=== PATIENT | male | born 1960 | race Caucasian/White ===

== ENCOUNTER → 2017-03-05 | Outpatient (CLI) | payer BC ==
--- NOTE | 2017-03-05 09:11 | CT ---
EXAMINATION TYPE: CT sinus wo con DATE OF EXAM: 03/05/2017 COMPARISON: NONE HISTORY: Chronic sinusitis CT DLP: 569.10 mGycm. Automated Exposure Control for Dose Reduction was Utilized. TECHNIQUE: CT scan of the sinuses is performed without contrast, axial images are obtained, coronal r eformatted images are also reviewed. FINDINGS: Visualized intracranial structures are normal. Soft tissues including the orbits appear normal. There is a 1.5 cm retention cyst or polyp involving the anterior aspect of the left maxillary sinus. There is mild, chronic mucoperiosteal thickening involving the anterior ethmoid air cells. The remain betina the paranasal sinuses are clear. The mastoid air cells are clear. Both infundibula are patent. IMPRESSION: MINIMAL, CHRONIC NUCHAL PERIOSTEAL THICKENING INVOLVING THE LEFT MAXILLARY SINUS AND THE ANTERIOR ETH MOID SINUSES BILATERALLY
== END | disposition home or self-care (01) ==
LOC: RADCTMAIN 08:41
PROVIDERS: ATTEND Otolaryngology
DX: J32.0 Chronic maxillary sinusitis (principal); J32.2 Chronic ethmoidal sinusitis
CPT/HCPCS: 70486

== ENCOUNTER 2017-04-10 11:26 | Day surgery (SDC) | payer BC ==
[2017-04-04 10:40] VITALS: BMI 26.0
[~2017-04-10 11:26] MED LIST: DEXAMETHASONE SOD PHOSPHATE 10 MG/ML 1 ML VIAL IV ONE; DEXAMETHASONE SOD PHOSPHATE 4 MG/ML 1 ML VIAL IV ONE; FAMOTIDINE 20 MG/2 ML VIAL IV ONE; LACTATED RINGERS 1,000 ML IV SCH; LIDOCAINE 1% 20 ML VIAL (10MG/ML) FOR IV START INTRADERMA PRN; MIDAZOLAM 2 MG/2 ML VIAL IV PRN; ONDANSETRON 4 MG/2 ML VIAL IVP ONE; SCOPOLAMINE 1.5MG/72HR PATCH TRANSDERM ONE; ceFAZolin 1,000 MG in DEXTROSE/WATER 1 50ML.BAG IV ONE
[2017-04-10] MEDS: OXYMETAZOLINE 0.05% NASL SPRAY 15 ML NASAL ONE ×5 (12:30→12:53)
[2017-04-10] MEDS ORDERED: LIDOCAINE 1%-EPI 1:100,000 20 ML VIAL SUBMUCOSAL ONE ×3 (13:09→13:26)
[2017-04-10] MEDS ORDERED: HYDROmorphone (PF) 1 MG/ML ONE (13:11)
[2017-04-10] MEDS ORDERED: PROPOFOL 10 MG/ML 20 ML VIAL IV ONE (13:11)
[2017-04-10] MEDS ORDERED: MIDAZOLAM 2 MG/2 ML VIAL ONE (13:11)
[2017-04-10] MEDS ORDERED: LIDOCAINE 1% INJ 10MG/ML (20 ML MDV) ONE (13:11)
[2017-04-10] MEDS ORDERED: SUCCINYLCHOLINE CHLORIDE 100 MG/5 ML SYR IV ONE (13:11)
[2017-04-10] MEDS ORDERED: fentaNYL (PF) 50 MCG/ML 2 ML AMP ONE (13:11)
[2017-04-10] MEDS ORDERED: BACITRACIN 500 UNIT/GM OINT 28.4 GM TUBE TOPICAL ONE (14:05)
[2017-04-10] MEDS ORDERED: LACTATED RINGERS 1,000 ML IV ONE (14:18)
--- NOTE | 2017-04-10 14:21 | P.OP ---
Date of Procedure: 04/10/17 Preoperative Diagnosis: Deviated nasal septum Inferior turbinate hypertrophy Chronic sinusitis Postoperative Diagnosis: Same Procedure(s) Performed: Septoplasty Outfracture and submucous resection inferior turbinates Bilateral endoscopic sinus surgery including bilateral maxillary antrostomy with removal of tissue from the left maxillary sinus, bilateral anterior ethmoidectomy, bilateral frontal sinusotomy including balloon sinus plasty with exploration, left antonette bullectomy Implants: Anesthesia: ROBB Surgeon: Jm Aaron Estimated Blood Loss (ml): 15 Pathology: other (Nasal septal bone and cartilage and sinus contents) Condition: stable Disposition: PACU Indications for Procedure: Is a 57-year-old white female with a long-term history of chronic nasal airway obstruction bilaterally right greater than left as well as chronic and recurrent sinusitis. Computed tomography scan showed evidence of chronic sinusitis. Operative Findings: Nasal septum deviated to the right, inferior turbinate hypertrophy, chronic sinusitis bilateral maxillary anterior ethmoid and mildly the frontal sinuses, left antonette bullosa cell Description of Procedure: Patient was brought in the operative suite and positioned supine position. Patient underwent induction of general anesthesia with oral endotracheal intubation without difficulty. The patient was prepped and draped in usual aseptic fashion. Orbits were in the operating field for monitoring testing case and computed tomography scan was on the computer screen through the case. 1% lidocaine with 1-100,000 epinephrine was infused submucosally both sides nasal septum as well as lateral nasal wall bilaterally and anterior tips of the middle turbinates bilaterally. The inferior turbinates were infractured with the Coamo elevator partial submucous resection inferior turbinates performed with Coblation device ablating a portion of the inferior turbinate soft tissue and then outfractured with the Coamo elevator. A left hemitransfixion incision was made the perichondrial mucoperiosteal flap on the left elevated. The bony cartilaginous junction was disarticulated and mucoperiosteal flap on the right was elevated. Bony cartilaginous junction was disarticulated and the bony nasal septal deformities were removed with Rowena forceps. An inferior cartilaginous strip was removed leaving a full 1.5 cm caudal strut. Checking intranasally this corrected the nasoseptal deformities and the hemitransfixion incision was closed running 4-0 chromic suture. Full 0 endoscopic examination is performed bilaterally. Beginning on the left the middle turbinate was medialized. The lateral one half of the middle turbinate was removed loss performed in the antonette bullectomy with the microdebrider. Left maxillary ostium was located with a ballpoint probe. Infundibulotomy was performed followed by uncinectomy. The maxillary ostium was enlarged at the expense the anterior posterior fontanelle taking care anteriorly not to the lacrimal bone. The maxillary sinus was inspected with the 30 endoscope and there were small polyps removed with giraffe forceps. Anterior ethmoidectomy was then performed with the microdebrider. The entellus light guided balloon system was then used to perform a frontal sinusotomy and the sinus was explored with 30 endoscope. Attention was then turned to the right where the procedures were followed as they were on the left including medialization middle turbinate infundibulotomy uncinectomy maxillary antrostomy with exploration anterior ethmoidectomy and balloon sinus plasty of the right frontal sinus with exploration. Once this was completed hemopore nasal dressing was placed as meatus under direct visualization. Bilateral Rose airway splints coated bacitracin ointment were placed in nasal cavities and sutured trans-septally with a 4-0 nylon suture. Patient was suctioned in oral gastric fashion. The patient was allowed to emerge from general anesthesia and Dr. hinojosa was extubated operative suite transferred postoperative recovery area in satisfactory condition.
[2017-04-10 14:37] VITALS: TEMP 97.8
[2017-04-10] MEDS: HYDROmorphone 1 MG/ML 1 ML SYRINGE IVP PRN ×4 (14:40→14:57)
[2017-04-10 14:46] VITALS: RESP 16
[2017-04-10] MEDS ORDERED: ENALAPRILAT 1.25 MG/ML 1 ML VIAL IVP ONE (15:05)
[2017-04-10] MEDS ORDERED: LABETALOL 5 MG/ML VIAL MDV IVP ONE (15:40)
[2017-04-10] MEDS ORDERED: hydrALAZINE HCL 20 MG/ML 1 ML VIAL IVP ONE (15:55)
[2017-04-10 16:55] VITALS: BP 143/91; PULSE 78
== END 2017-04-10 17:50 | disposition home or self-care (01) ==
LOC: OR 11:26
PROVIDERS: ATTEND Otolaryngology
DX: J34.2 Deviated nasal septum (principal); J34.3 Hypertrophy of nasal turbinates; Z87.442 Personal history of urinary calculi; J32.0 Chronic maxillary sinusitis; J32.2 Chronic ethmoidal sinusitis; J32.1 Chronic frontal sinusitis; Z79.891 Long term (current) use of opiate analgesic; Z79.2 Long term (current) use of antibiotics
CPT/HCPCS: 88305; 88300; 30520; 30140; 31267; 31254; 31276; C1726; J2250; J0360; J1100; J2405; J2001; J3010; J1170; J0330; J2704

== ENCOUNTER → 2018-02-27 | Outpatient (CLI) | payer OTHER ==
--- NOTE | 2018-02-28 00:43 | MR ---
EXAMINATION TYPE: MR lumbar spine wo con DATE OF EXAM: 02/27/2018 COMPARISON: NONE HISTORY: No prior, chronic low back pain, no injury TECHNIQUE: Multiplanar, multisequence images of the lumbar spine were acquired. Lumbar vertebra have normal alignment. Disc spaces are fairly normal for age. There is no compression fracture. There is no lumbar paraspinal mass. The posterior elements appear intact. The neural alton trev are fairly well-maintained. There is small posterior disc herniation at L4-5 without impingement on the spinal canal. There is no spinal stenosis. I see no bony destructive process. There is small p osterior disc bulge at L5-S1. IMPRESSION: Small posterior disc herniation at L4-5 without impingement on the neural elements. No fracture. No s ignificant disc space narrowing.
== END | disposition home or self-care (01) ==
LOC: RADMRIMAIN 19:20
PROVIDERS: ATTEND Internal Medicine
DX: M51.26 Other intervertebral disc displacement, lumbar region (principal)
CPT/HCPCS: 72148

== ENCOUNTER 2019-10-20 13:42 | Observation (INO) | payer OTHER ==
[2019-10-20] MEDS ORDERED: NITROGLYCERIN OINT 1 INCH/GM PACKET TOPICAL STA (14:11)
[2019-10-20] MEDS ORDERED: ASPIRIN 81 MG PO STA (14:11)
--- NOTE | 2019-10-20 14:13 | ED ---
General Adult HPI - General Chief complaint: Chest Pain Stated complaint: Chest pain Time Seen by Provider: 10/20/19 13:45 Source: patient, RN notes reviewed, old records reviewed Mode of arrival: wheelchair Limitations: no limitations - History of Present Illness Initial comments: This is a 59-year-old male presents emergency Department with a strong family history for heart disease. Patient states his brother last year at 16 his father had heart attack at 49. Patient states he woke up this morning felt fine at about 7:30 8:00 he started having chest pain per patient states he also felt short of breath since chest pain is occurred per patient denies any radiation of the chest pain. Patient states he has felt lightheaded but he hasn't had any diaphoretic episodes. Patient denies any nausea patient patient denies any abdominal pain. Patient states movement of any sort does not increase the pain. Patient's states he thought it might just be muscular but he agrees that nothing seems to increase the pain. - Related Data Home Medications Medication Instructions Recorded Confirmed traMADol HCL [Ultram] 100 mg PO TID PRN 04/04/17 04/04/17 Allergies Allergy/AdvReac Type Severity Reaction Status Date / Time BRAZIL NUTS Allergy Anaphylaxis Uncoded 10/20/19 13:52 Review of Systems ROS Statement: Those systems with pertinent positive or pertinent negative responses have been documented in the HPI. ROS Other: All systems not noted in ROS Statement are negative. Past Medical History Additional Past Medical History / Comment(s): CHRONIC SINUS DISORDER. CHRONIC BACK PAIN History of Any Multi-Drug Resistant Organisms: None Reported Additional Past Surgical History / Comment(s): COLONOSCOPY Past Anesthesia/Blood Transfusion Reactions: Motion Sickness Past Psychological History: No Psychological Hx Reported Smoking Status: Never smoker Past Alcohol Use History: None Reported Past Drug Use History: None Reported - Past Family History Mother Family Medical History: Cancer General Exam - General Exam Comments Initial Comments: GENERAL: Patient is well-developed and well-nourished. Patient is nontoxic and well- hydrated and is in mild distress. ENT: Neck is soft and supple. No significant lymphadenopathy is noted. Oropharynx is clear. Moist mucous membranes. Neck has full range of motion without eliciting any pain. EYES: The sclera were anicteric and conjunctiva were pink and moist. Extraocular movements were intact and pupils were equal round and reactive to light. Eyelids were unremarkable. PULMONARY: Unlabored respirations. Good breath sounds bilaterally. No audible rales rhonchi or wheezing was noted. CARDIOVASCULAR: There is a regular rate and rhythm without any murmurs gallops or rubs. ABDOMEN: Soft and nontender with normal bowel sounds. No palpable organomegaly was noted. There is no palpable pulsatile mass. SKIN: Skin is clear with no lesions or rashes and otherwise unremarkable. NEUROLOGIC: Patient is alert and oriented x3. Cranial nerves II through XII are grossly intact. Motor and sensory are also intact. Normal speech, volume and content. Symmetrical smile. MUSCULOSKELETAL: Normal extremities with adequate strength and full range of motion. No lower extremity swelling or edema. No calf tenderness. LYMPHATICS: No significant lymphadenopathy is noted PSYCHIATRIC: Normal psychiatric evaluation. 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 Chest x-ray shows no acute abnormality. I will begin the room to reevaluate the patient he stated that the nitro glycerin almost a limited his chest pain. I spoke with Dr. chase he agreed to admit the patient admitted the patient I consult cardiology. I started heparin emergency department I continued on the floor as well after Nitropaste - Lab Data Result diagrams: 10/20/19 14:15 10/20/19 14:15 Lab Results 10/20/19 10/20/19 10/20/19 Range/Units 14:15 14:15 14:15 WBC 7.2 (3.8-10.6) k/uL RBC 5.44 (4.30-5.90) m/uL Hgb 16.3 (13.0-17.5) gm/dL Hct 46.8 (39.0-53.0) % MCV 86.1 (80.0-100.0) fL MCH 29.9 (25.0-35.0) pg MCHC 34.8 (31.0-37.0) g/dL RDW 12.3 (11.5-15.5) % Plt Count 176 (150-450) k/uL Neutrophils % (Manual) 66 % Lymphocytes % (Manual) 26 % Monocytes % (Manual) 4 % Eosinophils % (Manual) 2 % Basophils % (Manual) 2 % Neutrophils # (Manual) 4.75 (1.3-7.7) k/uL Lymphocytes # (Manual) 1.87 (1.0-4.8) k/uL Monocytes # (Manual) 0.29 (0-1.0) k/uL Eosinophils # (Manual) 0.14 (0-0.7) k/uL Basophils # (Manual) 0.14 (0-0.2) k/uL Nucleated RBCs 0 (0-0) /100 WBC Manual Slide Review Performed RBC Morphology Normal PT 10.0 (9.0-12.0) sec INR 1.0 (<1.2) APTT 25.5 (22.0-30.0) sec Sodium 140 (137-145) mmol/L Potassium 4.4 (3.5-5.1) mmol/L Chloride 107 (98-107) mmol/L Carbon Dioxide 23 (22-30) mmol/L Anion Gap 10 mmol/L BUN 17 (9-20) mg/dL Creatinine 0.78 (0.66-1.25) mg/dL Est GFR (CKD-EPI)AfAm >90 (>60 ml/min/1.73 sqM) Est GFR (CKD-EPI)NonAf >90 (>60 ml/min/1.73 sqM) Glucose 110 H (74-99) mg/dL Calcium 9.3 (8.4-10.2) mg/dL Magnesium 2.1 (1.6-2.3) mg/dL Total Bilirubin 0.8 (0.2-1.3) mg/dL AST 21 (17-59) U/L ALT 17 (4-49) U/L Alkaline Phosphatase 54 (38-126) U/L Troponin I (0.000-0.034) ng/mL Total Protein 7.0 (6.3-8.2) g/dL Albumin 4.1 (3.5-5.0) g/dL 10/20/19 Range/Units 14:15 WBC (3.8-10.6) k/uL RBC (4.30-5.90) m/uL Hgb (13.0-17.5) gm/dL Hct (39.0-53.0) % MCV (80.0-100.0) fL MCH (25.0-35.0) pg MCHC (31.0-37.0) g/dL RDW (11.5-15.5) % Plt Count (150-450) k/uL Neutrophils % (Manual) % Lymphocytes % (Manual) % Monocytes % (Manual) % Eosinophils % (Manual) % Basophils % (Manual) % Neutrophils # (Manual) (1.3-7.7) k/uL Lymphocytes # (Manual) (1.0-4.8) k/uL Monocytes # (Manual) (0-1.0) k/uL Eosinophils # (Manual) (0-0.7) k/uL Basophils # (Manual) (0-0.2) k/uL Nucleated RBCs (0-0) /100 WBC Manual Slide Review RBC Morphology PT (9.0-12.0) sec INR (<1.2) APTT (22.0-30.0) sec Sodium (137-145) mmol/L Potassium (3.5-5.1) mmol/L Chloride (98-107) mmol/L Carbon Dioxide (22-30) mmol/L Anion Gap mmol/L BUN (9-20) mg/dL Creatinine (0.66-1.25) mg/dL Est GFR (CKD-EPI)AfAm (>60 ml/min/1.73 sqM) Est GFR (CKD-EPI)NonAf (>60 ml/min/1.73 sqM) Glucose (74-99) mg/dL Calcium (8.4-10.2) mg/dL Magnesium (1.6-2.3) mg/dL Total Bilirubin (0.2-1.3) mg/dL AST (17-59) U/L ALT (4-49) U/L Alkaline Phosphatase (38-126) U/L Troponin I <0.012 (0.000-0.034) ng/mL Total Protein (6.3-8.2) g/dL Albumin (3.5-5.0) g/dL Critical Care Time Critical Care Time: Yes Total Critical Care Time: 35 Disposition Clinical Impression: Unstable angina pectoris Disposition: ADMITTED IP TO THIS HOSP Referrals: Jair To MD [Primary Care Provider] - 1-2 days Time of Disposition: 16:09
[2019-10-20 14:39] LABS: Partial Thromboplastin Time 25.5 sec (22.0-30.0)
--- NOTE | 2019-10-20 14:44 | XR ---
EXAMINATION TYPE: XR chest 2V DATE OF EXAM: 10/20/2019 COMPARISON: None HISTORY: 59-year-old male with chest pain TECHNIQUE: PA and lateral views FINDINGS: The cardiomediastinal silhouette, aorta, and pulmonary vasculature are within normal limits. Lungs an d pleural spaces are clear. IMPRESSION: No acute cardiopulmonary process.
[2019-10-20 14:46] LABS: ALT 17 U/L (4-49); AST 21 U/L (17-59); African American GFR (CKD) >90 (>60 ml/min/1.73 sqM); Albumin 4.1 g/dL (3.5-5.0); Alkaline Phosphatase 54 U/L (38-126); Anion Gap 10 mmol/L; Blood Urea Nitrogen 17 mg/dL (9-20); Calcium 9.3 mg/dL (8.4-10.2); Carbon Dioxide 23 mmol/L (22-30); Chloride 107 mmol/L (98-107); Glucose 110 mg/dL (74-99); Magnesium 2.1 mg/dL (1.6-2.3); Non-African American GFR(CKD) >90 (>60 ml/min/1.73 sqM); Potassium 4.4 mmol/L (3.5-5.1); Sodium 140 mmol/L (137-145); Total Bilirubin 0.8 mg/dL (0.2-1.3)
[2019-10-20 14:50] LABS: HCT 46.8 % (39.0-53.0); HGB 16.3 gm/dL (13.0-17.5); MCH 29.9 pg (25.0-35.0); MCHC 34.8 g/dL (31.0-37.0); MCV 86.1 fL (80.0-100.0); Platelet Count 176 k/uL (150-450); RBC 5.44 m/uL (4.30-5.90); RDW 12.3 % (11.5-15.5); WBC 7.2 k/uL (3.8-10.6)
[2019-10-20 15:24] LABS: Basophils # (M) 0.14 k/uL (0-0.2); Eosinophils # (M) 0.14 k/uL (0-0.7); Lymphocytes # (M) 1.87 k/uL (1.0-4.8); Monocytes # (M) 0.29 k/uL (0-1.0); Neutrophils # (M) 4.75 k/uL (1.3-7.7); Neutrophils % (M) 66 %; Nucleated Red Blood Cells 0 /100 WBC (0-0); Total Cells Counted 100
[2019-10-20] MEDS ORDERED: HEPARIN SODIUM,PORCINE 5,000 UNIT/ML 1 ML VIAL IV ONE (16:11)
[2019-10-20] MEDS ORDERED: NITROGLYCERIN SL TABS 0.4 MG TAB SUBLINGUAL PRN (16:12)
[2019-10-20] MEDS: HEPARIN SOD,PORK IN 0.45% NACL 25,000 UNIT in 0.45% NACL 1 250ML.BAG IV SCH (16:32)
[2019-10-20] MEDS ORDERED: ACETAMINOPHEN TAB 325 MG TAB PO STA (18:46)
[2019-10-20] MEDS: NITROGLYCERIN OINT 1 INCH/GM PACKET TOPICAL SCH (18:49)
[2019-10-21] MEDS: NITROGLYCERIN OINT 1 INCH/GM PACKET TOPICAL SCH ×3 (00:29→12:37)
[2019-10-21] MEDS ORDERED: ACETAMINOPHEN TAB 325 MG TAB PO PRN (06:01)
[2019-10-21] MEDS: HEPARIN SOD,PORK IN 0.45% NACL 25,000 UNIT in 0.45% NACL 1 250ML.BAG IV SCH (06:16)
[2019-10-21 07:21] LABS: Cholesterol 197 mg/dL (<200); HDL Cholesterol 40 mg/dL (40-60); LDL Cholesterol,Calculated 117 mg/dL (0-99); Triglycerides 199 mg/dL (<150)
[2019-10-21 07:57] VITALS: RESP 18
[2019-10-21] MEDS ORDERED: ASPIRIN 325 MG TAB PO SCH (09:00)
--- NOTE | 2019-10-21 13:20 | ECHOS ---
STRESS ECHOCARDIOGRAM DATE OF SERVICE: 10/21/2019 INDICATIONS: Chest pain. MEDICATIONS: BASELINE HEART RATE: 63 BASELINE BLOOD PRESSURE: 121/75 MAXIMUM HEART RATE: 144 MAXIMUM BLOOD PRESSURE: 168/91 85% MPHR: 139 100% MPHR: 163 METS: 11.9 MAXIMUM STAGE REACHED: IV TOTAL EXERCISE TIME: 10 minutes 15 seconds CLINICAL INFORMATION: Baseline EKG revealed normal sinus rhythm with some sinus arrhythmia and no significant ST-T changes. Patient walked on standard Jose protocol for 10 minutes 15 seconds achieved a maximal heart rate of 144 beats per minute which is more than 85% of predicted maximal. He developed fatigue, shortness of breath, but did not have angina or arrhythmia. There was no significant arrhythmia. No anginal symptoms are noted. By EKG criteria, this is a negative stress test with good exercise capacity. Baseline echo images revealed normal wall motion and wall thickening of all segments. At peak exercise, there was good augmentation of left ventricular wall motion and wall thickening of all segments suggesting that there is no evidence of stress-induced ischemia on this study. FINAL IMPRESSION: 1. Good exercise capacity. Negative stress test by EKG criteria. 2. Normal stress echocardiogram. MMODL / IJN: [id number] /
--- NOTE | 2019-10-21 13:45 | P.HPIM ---
History of Present Illness This is a pleasant 59 years old male with no significant past medical history however he has Family history of heart disease. The presents of one-day of chest pain, central, sharp and dull achy about 60/10 nonradiating associated w ith lightheadedness and difficulty breathing, with some improvement today. No more lightheadedness. Patient states that he was carrying a child when day earlier and might contribute to his chest pain. However it does not explain the dyspnea and lightheadedness. Patient has been evaluated by inside channel account manager and had negative stress test. However he still have chest pain. I discussed with the patient to recheck d-dimer and he agreed. Also I discussed with him the possible to need for CT angiogram with contrast to rule out pulmonary embolism, risk of nephrotoxicity and permanent damage are explained to the patient and he verbalized understanding and acceptance to do the test if he has elevated d- dimer . Patient denies change in urine or bowel habits or fever. Vitas looks stable. Labs including CBC, BMP, liver enzymes are unremarkable. Serial troponins are negative. Chest x-ray no acute cardiopulmonary process by inside channel account manager Review of Systems CONSTITUTIONAL: No fever, no malaise, no fatigue. HEENT: No recent visual problems or hearing problems. Denied any sore throat. CARDIOVASCULAR: No orthopnea, PND, no palpitations, no syncope. PULMONARY: No shortness of breath, no cough, no hemoptysis. GASTROINTESTINAL: No diarrhea, no nausea, no vomiting, no abdominal pain. Normoactive bowel sounds. NEUROLOGICAL: No headaches, no weakness, no numbness. HEMATOLOGICAL: Denies any bleeding or petechiae. GENITOURINARY: Denies any burning micturition, frequency, or urgency. MUSCULOSKELETAL/RHEUMATOLOGICAL: Denies any joint pain, swelling, or any muscle pain. ENDOCRINE: Denies any polyuria or polydipsia. Past Medical History Additional Past Medical History / Comment(s): CHRONIC SINUS DISORDER. CHRONIC BACK PAIN History of Any Multi-Drug Resistant Organisms: None Reported Additional Past Surgical History / Comment(s): COLONOSCOPY Past Anesthesia/Blood Transfusion Reactions: Motion Sickness Past Psychological History: No Psychological Hx Reported Smoking Status: Never smoker Past Alcohol Use History: None Reported Past Drug Use History: None Reported - Past Family History Mother Family Medical History: Cancer Medications and Allergies Home Medications Medication Instructions Recorded Confirmed Type traMADol HCL [Ultram] 50 mg PO BID 04/04/17 10/20/19 History Magnesium Oxide [Mag-Ox] 250 mg PO DAILY 10/20/19 10/20/19 History Multivitamins, Thera [Multivitamin 1 tab PO DAILY 10/20/19 10/20/19 History (formulary)] Vitamin B-12(Unknown Dose) 1 tab PO DAILY 10/20/19 10/20/19 History Allergies Allergy/AdvReac Type Severity Reaction Status Date / Time BRAZIL NUTS Allergy Anaphylaxis Uncoded 10/20/19 13:52 Physical Exam Vitals: Vital Signs Temp Pulse Pulse Pulse Resp BP BP 10/21/19 12:11 98.4 F 71 18 10/21/19 07:54 97.8 F 70 18 10/21/19 04:00 98.2 F 68 16 119/65 10/20/19 23:51 98.0 F 71 17 113/56 10/20/19 19:22 97.9 F 76 18 120/70 10/20/19 17:17 60 62 18 10/20/19 16:53 97.8 F 62 18 133/87 10/20/19 16:36 63 20 119/77 10/20/19 15:25 56 L 20 107/73 10/20/19 14:18 60 20 10/20/19 13:48 97.8 F 72 16 119/76 BP Pulse Ox 10/21/19 12:11 131/78 97 10/21/19 07:54 118/69 98 10/21/19 04:00 99 10/20/19 23:51 98 10/20/19 19:22 98 10/20/19 17:17 10/20/19 16:53 95 10/20/19 16:36 96 10/20/19 15:25 95 10/20/19 14:18 10/20/19 13:48 96 Intake and Output 10/20/19 10/21/19 10/21/19 22:59 06:59 14:59 Intake Total 236 198.666 300 Balance 236 198.666 300 Intake: Intake, IV Titration 198.666 Amount Heparin Sod,Pork in 0.45% 198.666 NaCl 25,000 unit In 0.45 % NaCl 1 250ml.bag @ 12 UNITS/KG/HR 10.07 mls/hr IV .Q[facility]H [facility] Rx#: [id number] Oral 236 300 Other: Voiding Method Toilet Toilet Toilet Weight 83.915 kg 75.5 kg 75.5 kg GENERAL: The patient is alert and oriented x3, not in any acute distress. Well developed, well nourished. HEENT: Pupils are round and equally reacting to light. EOMI. No scleral icterus. No conjunctival pallor. Normocephalic, atraumatic. No pharyngeal erythema. No thyromegaly. CARDIOVASCULAR: S1 and S2 present. No murmurs, rubs, or gallops. PULMONARY: Chest is clear to auscultation, no wheezing or crackles. ABDOMEN: Soft, nontender, nondistended, normoactive bowel sounds. No palpable organomegaly. MUSCULOSKELETAL: No joint swelling or deformity. EXTREMITIES: No cyanosis, clubbing, or pedal edema. NEUROLOGICAL: Gross neurological examination did not reveal any focal deficits. SKIN: No rashes. No petechiae Results CBC & Chem 7: 10/20/19 14:15 10/20/19 14:15 Labs: Abnormal Lab Results - Last 24 Hours (Table) 10/20/19 10/20/19 10/21/19 Range/Units 14:15 21:54 05:53 APTT 49.4 H (22.0-30.0) sec Glucose 110 H (74-99) mg/dL Triglycerides 199 H (<150) mg/dL LDL Cholesterol, Calc 117 H (0-99) mg/dL 10/21/19 Range/Units 05:53 APTT 66.7 H (22.0-30.0) sec Glucose (74-99) mg/dL Triglycerides (<150) mg/dL LDL Cholesterol, Calc (0-99) mg/dL Thrombosis Risk Factor Assmnt - Choose All That Apply Each Factor Represents 1 point: Age 41-60 years Other Risk Factors: No Thrombosis Risk Factor Assessment Total Risk Factor Score: 1 Thrombosis Risk Factor Assessment Level: Low Risk Assessment and Plan Assessment: Chest pain with episodic dyspnea and lightheadedness. Rule out PE Negative stress test and cardiogenic cleared the patient for discharge Strong family history of heart disease Plan: This is a pleasant 59 years old male who presents with chest pain and dyspnea and lightheadedness with some improvement but persistent symptoms. He has negative stress test by cardiology who cleared him for discharge. I discussed with the patient went on to do d-dimer and if is positive for going to proceed with CT N0 to rule out pulmonary embolism Labs and medication were reviewed.. Continue same treatment. Continue with symptomatic treatment. Resume home medication. Monitor lytes and vitals. DVT and GI prophylaxis. Further recommendations of the clinical course of the patient DVT prophylaxis: Subcutaneous heparin GI Prophylaxis: Pepcid Prognosis is guarded
[2019-10-21] MEDS ORDERED: SODIUM CHLORIDE 0.9% 1,000 ML IV SCH (14:30)
--- NOTE | 2019-10-21 15:25 | US ---
EXAMINATION TYPE: US venous doppler duplex LE DATE OF EXAM: 10/21/2019 3:00 PM COMPARISON: NONE CLINICAL HISTORY: Rule out DVT. Pain SIDE PERFORMED: Bilateral TECHNIQUE: The lower extremity deep venous system is examined utilizing real time linear array sonog cristina with graded compression, doppler sonography and color-flow sonography. VESSELS IMAGED: External Iliac Vein (EIV) Common Femoral Vein Deep Femoral Vein Greater Saphenous Vein * Femoral Vein Popliteal Vein Small Saphenous Vein * Proximal Calf Veins (* superficial vessels) There is normal flow, compressibility, vascular waveforms. Right Leg: Negative for DVT Left Leg: Negative for DVT IMPRESSION: No evident deep venous thrombosis at or above the knees..
--- NOTE | 2019-10-21 15:33 | CT ---
EXAMINATION TYPE: CT chest angio for PE DATE OF EXAM: 10/21/2019 COMPARISON: HISTORY: Elevated d-dimer with mid chest pain. CT DLP: 329.3 mGycm CONTRAST: CT chest with contrast and 3D reconstruction with MIP imaging is performed with IV Contrast, patient injected with 100 mL of Isovue 370. Contrast-enhanced CT of the chest was performed through the course of the pulmonary arteries with yen g and mediastinal window settings submitted. 3D reconstruction with MIP imaging was also performed. PULMONARY ARTERIES: The pulmonary arteries and their major tributaries are patent. I do not see chula dence for sizable filling defect to suggest pulmonary embolic process. LUNGS: The lungs are clear and free of infiltrate. No evidence for atelectasis. No pulmonary nodule or mass is detected. No pleural effusion. MEDIASTINUM: Thoracic aorta is of normal caliber,however, evaluation is limited given timing of the contrast bolus. If there is concern for thoracic aortic pathology consider MATTHEW. Correlate clinicall y . The heart is not enlarged. No evidence for mediastinal mass. No mediastinal lymph nodes greater than 1cm. HILAR STRUCTURES: No evidence for mass. No hilar lymph nodes greater than 1 cm. UPPER ABDOMEN: No significant abnormality is seen. IMPRESSION: 1. No evidence for Pulmonary embolism at this time.
[2019-10-21 16:20] VITALS: BP 131/80; PULSE 65; TEMP 98.5
--- NOTE | 2019-10-21 17:59 | CONS ---
CONSULTATION This is a 59-year-old gentleman without significant past medical history. He takes tramadol for back pain. He does not do any active physical work. He is a reasonably active person but came in with complaints of a significant amount of anxiety and declared that he has a family history of CAD, was complaining of chest pressure on and off, quality of which seems very atypical but persistent. He has not had any pain after arrival. Three sets of troponins and EKGs are unremarkable. All other lab work is also unremarkable. Physical exam was unremarkable. I am recommending a stress echo. We will discontinue heparin and increase activity. PAST MEDICAL HISTORY: No evidence of any hypertension, diabetes, myocardial infarction or CVA. He has back pain and joint pains, for which he takes tramadol. No major operations. No major surgical history. PHYSICAL EXAMINATION: Blood pressure is 130/70, pulse rate is about 70 per minute, regular. HEENT unremarkable. Fundus was not examined by me. Neck is supple. No JVD. I do not hear a carotid bruit. There is no thyromegaly. Heart exam reveals S1, S2 heard normally. No rub, murmur or gallop. Lungs are clear. Abdomen is soft, nontender. Lower extremities reveal normal pulses. No edema. Central nervous system is normal. EKG revealed sinus mechanism, no acute changes. IMPRESSION: 1. Atypical chest pain. 2. Family history of coronary artery disease. 3. History of some back discomfort, for which he takes tramadol. RECOMMENDATIONS: The patient's pain is atypical, but there is a strong family history and significant amount of anxiety. I would discontinue heparin, increase activity, perform a stress echocardiogram, and if this is normal, he can be discharged today. Thank you very much for the consult. MMODL / IJN: [id number] /
== END 2019-10-21 17:50 | disposition home or self-care (01) ==
LOC: EC 13:42 → 1SOBS 16:15
PROVIDERS: ADMIT Internal Medicine; ATTEND Internal Medicine
DX: I20.0 Unstable angina (principal); G89.29 Other chronic pain; M54.9 Dorsalgia, unspecified; Z82.49 Family history of ischemic heart disease and other diseases of the circulatory system; Z79.891 Long term (current) use of opiate analgesic; F41.9 Anxiety disorder, unspecified; Z91.018 Allergy to other foods
CPT/HCPCS: 93005 ×2; 96366 ×2; 96376; 96365; 99291; 36415; 93351; 85379; 80061; 80053; 83735; 84484 ×2; 85025; 85610; 85730 ×2; 71046; 93970; 71275; G0378 ×2; J1644 ×3; Q9967

== ENCOUNTER 2022-04-22 12:54 | Emergency (ER) | payer OTHER ==
--- NOTE | 2022-04-22 13:57 | ED ---
General Adult HPI - General Chief complaint: Dizziness Stated complaint: dizzy Time Seen by Provider: 04/22/22 13:34 Source: patient, RN notes reviewed, old records reviewed Mode of arrival: wheelchair Limitations: no limitations - History of Present Illness Initial comments: 62-year-old male presenting with increased fatigue. Patient has had multiple episodes where he has fallen asleep unexpectedly. There is been no reported fall collapse or syncopal episode. These episodes are transient. He states that he's not been feeling right for several weeks. He denies specific symptoms no headache. No fever. No chest pain. No abdominal pain. No focal numbness or weakness. He has been eating and drinking normally. No daily medications. - Related Data Home Medications Medication Instructions Recorded Confirmed Ascorbic Acid [Vitamin C] 500 mg PO DAILY 04/22/22 04/22/22 Cholecalciferol [Vitamin D3 (25 25 mcg PO DAILY 04/22/22 04/22/22 Mcg = 1000 Iu)] Cyanocobalamin (Vitamin B-12) 1,000 mcg PO DAILY 04/22/22 04/22/22 [Vitamin B-12] Magnesium Oxide [Mag-Ox] 400 mg PO DAILY 04/22/22 04/22/22 Allergies Allergy/AdvReac Type Severity Reaction Status Date / Time BRAZIL NUTS Allergy Anaphylaxis Uncoded 04/22/22 15:14 Review of Systems ROS Statement: Those systems with pertinent positive or pertinent negative responses have been documented in the HPI. ROS Other: All systems not noted in ROS Statement are negative. Past Medical History Additional Past Medical History / Comment(s): CHRONIC SINUS DISORDER. CHRONIC BACK PAIN History of Any Multi-Drug Resistant Organisms: None Reported Additional Past Surgical History / Comment(s): COLONOSCOPY Past Anesthesia/Blood Transfusion Reactions: Motion Sickness Past Psychological History: No Psychological Hx Reported Smoking Status: Never smoker Past Alcohol Use History: None Reported Past Drug Use History: None Reported - Past Family History Mother Family Medical History: Cancer General Exam Limitations: no limitations General appearance: alert, in no apparent distress Head exam: Present: atraumatic, normocephalic Eye exam: Present: normal appearance, PERRL ENT exam: Present: mucous membranes dry Neck exam: Present: normal inspection. Absent: tenderness, meningismus Respiratory exam: Present: normal lung sounds bilaterally. Absent: respiratory distress, wheezes, rales Cardiovascular Exam: Present: regular rate, normal rhythm GI/Abdominal exam: Present: soft. Absent: distended, tenderness, guarding Extremities exam: Present: normal inspection, normal capillary refill Neurological exam: Present: alert, oriented X3, CN II-XII intact. Absent: motor sensory deficit Psychiatric exam: Present: normal affect, normal mood Skin exam: Present: warm, dry, intact. Absent: cyanosis, diaphoretic Course Vital Signs 04/22/22 04/22/22 13:06 15:56 Temperature 97.8 F 97.8 F Pulse Rate 70 57 L Respiratory 16 20 Rate Blood Pressure 135/87 137/81 O2 Sat by Pulse 97 97 Oximetry EKG Findings - EKG Comments: EKG Findings:: EKG: Sinus bradycardia no ST segment elevation sinus arrhythmia, rate of 59, CO interval 178, QRS duration 114, QTC 381. Medical Decision Making - Medical Decision Making 62-year-old male with episodes of fatigue. He does admit that he worked a double shift yesterday. He does remain arousable during these episodes. He does not lose consciousness. His states he is alert. He just feels waves of fatigue. This testing in the emergency Department is essentially unremarkable. EKG is sinus. Chest x-ray clear. Normal CBC. He has a blood glucose of 171 with no other electrolytes abnormality. Negative troponin, negative urinalysis. Patient should follow with his primary care physician. He may require sleep study or further evaluation as an outpatient. Return parameters are discussed. - Lab Data Result diagrams: 04/22/22 14:26 04/22/22 14:26 Lab Results 04/22/22 04/22/22 04/22/22 Range/Units 14:26 14:26 14:26 WBC 7.8 (3.8-10.6) k/uL RBC 5.41 (4.30-5.90) m/uL Hgb 15.9 (13.0-17.5) gm/dL Hct 46.7 (39.0-53.0) % MCV 86.2 (80.0-100.0) fL MCH 29.5 (25.0-35.0) pg MCHC 34.2 (31.0-37.0) g/dL RDW 12.3 (11.5-15.5) % Plt Count 173 (150-450) k/uL MPV 7.7 Neutrophils % (Manual) 61 % Lymphocytes % (Manual) 33 % Monocytes % (Manual) 5 % Eosinophils % (Manual) 1 % Neutrophils # (Manual) 4.76 (1.3-7.7) k/uL Lymphocytes # (Manual) 2.57 (1.0-4.8) k/uL Monocytes # (Manual) 0.39 (0-1.0) k/uL Eosinophils # (Manual) 0.08 (0-0.7) k/uL Nucleated RBCs 0 (0-0) /100 WBC Manual Slide Review Performed RBC Morphology Normal PT 10.3 (9.0-12.0) sec INR 0.9 (<1.2) APTT 24.4 (22.0-30.0) sec VBG pH (7.31-7.41) VBG pCO2 (37-51) mmHg VBG HCO3 (24-28) mmol/L Sodium 137 (137-145) mmol/L Potassium 4.0 (3.5-5.1) mmol/L Chloride 107 (98-107) mmol/L Carbon Dioxide 25 (22-30) mmol/L Anion Gap 5 mmol/L BUN 15 (9-20) mg/dL Creatinine 0.70 (0.66-1.25) mg/dL Est GFR (CKD-EPI)AfAm >90 (>60 ml/min/1.73 sqM) Est GFR (CKD-EPI)NonAf >90 (>60 ml/min/1.73 sqM) Glucose 171 H (74-99) mg/dL Plasma Lactic Acid [place] (0.7-2.0) mmol/L Calcium 9.2 (8.4-10.2) mg/dL Magnesium 1.9 (1.6-2.3) mg/dL Total Bilirubin 0.8 (0.2-1.3) mg/dL AST 27 (17-59) U/L ALT 23 (4-49) U/L Alkaline Phosphatase 72 (38-126) U/L Troponin I (0.000-0.034) ng/mL Total Protein 6.9 (6.3-8.2) g/dL Albumin 4.0 (3.5-5.0) g/dL TSH 1.160 (0.465-4.680) mIU/L Urine Color Urine Appearance (Clear) Urine pH (5.0-8.0) Ur Specific [place] (1.001-1.035) Urine Protein (Negative) Urine Glucose (UA) (Negative) Urine Ketones (Negative) Urine Blood (Negative) Urine Nitrite (Negative) Urine Bilirubin (Negative) Urine Urobilinogen (<2.0) mg/dL Ur Leukocyte Esterase (Negative) 04/22/22 04/22/22 04/22/22 Range/Units 14:26 14:26 14:26 WBC (3.8-10.6) k/uL RBC (4.30-5.90) m/uL Hgb (13.0-17.5) gm/dL Hct (39.0-53.0) % MCV (80.0-100.0) fL MCH (25.0-35.0) pg MCHC (31.0-37.0) g/dL RDW (11.5-15.5) % Plt Count (150-450) k/uL MPV Neutrophils % (Manual) % Lymphocytes % (Manual) % Monocytes % (Manual) % Eosinophils % (Manual) % Neutrophils # (Manual) (1.3-7.7) k/uL Lymphocytes # (Manual) (1.0-4.8) k/uL Monocytes # (Manual) (0-1.0) k/uL Eosinophils # (Manual) (0-0.7) k/uL Nucleated RBCs (0-0) /100 WBC Manual Slide Review RBC Morphology PT (9.0-12.0) sec INR (<1.2) APTT (22.0-30.0) sec VBG pH 7.42 H (7.31-7.41) VBG pCO2 40 (37-51) mmHg VBG HCO3 26 (24-28) mmol/L Sodium (137-145) mmol/L Potassium (3.5-5.1) mmol/L Chloride (98-107) mmol/L Carbon Dioxide (22-30) mmol/L Anion Gap mmol/L BUN (9-20) mg/dL Creatinine (0.66-1.25) mg/dL Est GFR (CKD-EPI)AfAm (>60 ml/min/1.73 sqM) Est GFR (CKD-EPI)NonAf (>60 ml/min/1.73 sqM) Glucose (74-99) mg/dL Plasma Lactic Acid [place] 1.2 (0.7-2.0) mmol/L Calcium (8.4-10.2) mg/dL Magnesium (1.6-2.3) mg/dL Total Bilirubin (0.2-1.3) mg/dL AST (17-59) U/L ALT (4-49) U/L Alkaline Phosphatase (38-126) U/L Troponin I <0.012 (0.000-0.034) ng/mL Total Protein (6.3-8.2) g/dL Albumin (3.5-5.0) g/dL TSH (0.465-4.680) mIU/L Urine Color Urine Appearance (Clear) Urine pH (5.0-8.0) Ur Specific [place] (1.001-1.035) Urine Protein (Negative) Urine Glucose (UA) (Negative) Urine Ketones (Negative) Urine Blood (Negative) Urine Nitrite (Negative) Urine Bilirubin (Negative) Urine Urobilinogen (<2.0) mg/dL Ur Leukocyte Esterase (Negative) 04/22/22 Range/Units 15:54 WBC (3.8-10.6) k/uL RBC (4.30-5.90) m/uL Hgb (13.0-17.5) gm/dL Hct (39.0-53.0) % MCV (80.0-100.0) fL MCH (25.0-35.0) pg MCHC (31.0-37.0) g/dL RDW (11.5-15.5) % Plt Count (150-450) k/uL MPV Neutrophils % (Manual) % Lymphocytes % (Manual) % Monocytes % (Manual) % Eosinophils % (Manual) % Neutrophils # (Manual) (1.3-7.7) k/uL Lymphocytes # (Manual) (1.0-4.8) k/uL Monocytes # (Manual) (0-1.0) k/uL Eosinophils # (Manual) (0-0.7) k/uL Nucleated RBCs (0-0) /100 WBC Manual Slide Review RBC Morphology PT (9.0-12.0) sec INR (<1.2) APTT (22.0-30.0) sec VBG pH (7.31-7.41) VBG pCO2 (37-51) mmHg VBG HCO3 (24-28) mmol/L Sodium (137-145) mmol/L Potassium (3.5-5.1) mmol/L Chloride (98-107) mmol/L Carbon Dioxide (22-30) mmol/L Anion Gap mmol/L BUN (9-20) mg/dL Creatinine (0.66-1.25) mg/dL Est GFR (CKD-EPI)AfAm (>60 ml/min/1.73 sqM) Est GFR (CKD-EPI)NonAf (>60 ml/min/1.73 sqM) Glucose (74-99) mg/dL Plasma Lactic Acid [place] (0.7-2.0) mmol/L Calcium (8.4-10.2) mg/dL Magnesium (1.6-2.3) mg/dL Total Bilirubin (0.2-1.3) mg/dL AST (17-59) U/L ALT (4-49) U/L Alkaline Phosphatase (38-126) U/L Troponin I (0.000-0.034) ng/mL Total Protein (6.3-8.2) g/dL Albumin (3.5-5.0) g/dL TSH (0.465-4.680) mIU/L Urine Color Yellow Urine Appearance Clear (Clear) Urine pH 6.0 (5.0-8.0) Ur Specific [place] 1.021 (1.001-1.035) Urine Protein Negative (Negative) Urine Glucose (UA) Trace H (Negative) Urine Ketones Negative (Negative) Urine Blood Negative (Negative) Urine Nitrite Negative (Negative) Urine Bilirubin Negative (Negative) Urine Urobilinogen <2.0 (<2.0) mg/dL Ur Leukocyte Esterase Negative (Negative) Disposition Clinical Impression: Fatigue Disposition: HOME SELF-CARE Condition: Fair Instructions (If sedation given, give patient instructions): Fatigue (ED) Is patient prescribed a controlled substance at d/c from ED?: No Referrals: Jair To MD [Primary Care Provider] - 1-2 days Time of Disposition: 16:10
--- NOTE | 2022-04-22 14:10 | XR ---
EXAMINATION TYPE: XR chest 2V DATE OF EXAM: 04/22/2022 COMPARISON: 10/20/2019 HISTORY: Weakness TECHNIQUE: FINDINGS: There is no heart failure or confluent pneumonic infiltrate. Costophrenic angles are clear. There are chest leads. IMPRESSION: No active cardiopulmonary disease. Normal heart. No change.
[2022-04-22 14:43] LABS: ALT 23 U/L (4-49); AST 27 U/L (17-59); African American GFR (CKD) >90 (>60 ml/min/1.73 sqM); Alkaline Phosphatase 72 U/L (38-126); Anion Gap 5 mmol/L; Blood Urea Nitrogen 15 mg/dL (9-20); Calcium 9.2 mg/dL (8.4-10.2); Carbon Dioxide 25 mmol/L (22-30); Chloride 107 mmol/L (98-107); Glucose 171 mg/dL (74-99); Magnesium 1.9 mg/dL (1.6-2.3); Non-African American GFR(CKD) >90 (>60 ml/min/1.73 sqM); Sodium 137 mmol/L (137-145); Total Bilirubin 0.8 mg/dL (0.2-1.3); Total Protein 6.9 g/dL (6.3-8.2)
[2022-04-22 14:54] LABS: HCT 46.7 % (39.0-53.0); HGB 15.9 gm/dL (13.0-17.5); MCH 29.5 pg (25.0-35.0); MCHC 34.2 g/dL (31.0-37.0); MCV 86.2 fL (80.0-100.0); Mean Platelet Volume 7.7; Platelet Count 173 k/uL (150-450); RBC 5.41 m/uL (4.30-5.90); RDW 12.3 % (11.5-15.5); WBC 7.8 k/uL (3.8-10.6)
[2022-04-22 14:58] LABS: INR 0.9 (<1.2); Partial Thromboplastin Time 24.4 sec (22.0-30.0); Prothrombin Time 10.3 sec (9.0-12.0)
[2022-04-22 15:05] LABS: VBG PH 7.42 (7.31-7.41)
[2022-04-22 15:25] LABS: Eosinophils # (M) 0.08 k/uL (0-0.7); Lymphocytes # (M) 2.57 k/uL (1.0-4.8); Monocytes # (M) 0.39 k/uL (0-1.0); Neutrophils # (M) 4.76 k/uL (1.3-7.7); Neutrophils % (M) 61 %; Nucleated Red Blood Cells 0 /100 WBC (0-0); Total Cells Counted 100
[2022-04-22 15:26] LABS: RBC Morphology Normal
[2022-04-22 15:58] VITALS: RESP 20
[2022-04-22 16:04] LABS: Appearance,Urine Clear (Clear); Bilirubin,Urine Negative (Negative); Blood,Urine Negative (Negative); Color,Urine Yellow; Glucose,Urine (UA) Trace (Negative); Ketones,Urine Negative (Negative); Leukocyte Esterase,Urine Negative (Negative); Nitrite,Urine Negative (Negative); Protein,Urine Negative (Negative); Specific Gravity,Urine 1.021 (1.001-1.035); Urobilinogen,Urine <2.0 mg/dL (<2.0)
[2022-04-22 16:31] VITALS: BP 138/78; PULSE 62; TEMP 97.7
== END 2022-04-22 16:29 | disposition home or self-care (01) ==
LOC: EC 12:54
DX: R53.81 Other malaise (principal); Z91.018 Allergy to other foods
CPT/HCPCS: 36415; 71046; 80053; 81003; 82803; 83605; 83735; 84443; 84484; 85025; 85610; 85730; 93005; 99284

== ENCOUNTER 2022-06-30 08:22 | Observation (INO) | payer OTHER ==
[2022-06-30] MEDS ORDERED: SODIUM CHLORIDE 0.9% 1,000 ML IV STA (08:23)
--- NOTE | 2022-06-30 08:27 | ED ---
General Adult HPI - General Stated complaint: diabetes issues Time Seen by Provider: 06/30/22 08:23 Source: patient, EMS, RN notes reviewed Mode of arrival: EMS Limitations: no limitations - History of Present Illness Initial comments: Patient is a pleasant 62-year-old male presenting to the emergency department by EMS. Chief complaint was patient being drowsy this morning. Patient felt fine yesterday. Patient did have lites can last night. No history of diabetes. EMS found patient to have blood sugar 306. Patient has been having polyuria and polydipsia over the past couple of days. Patient denies feeling confused. Patient admits to feeling slightly drowsy. Patient answers questions appropriately. Patient denies weakness. Patient denies any pain. - Related Data Home Medications Medication Instructions Recorded Confirmed Ascorbic Acid [Vitamin C] 500 mg PO DAILY 04/22/22 04/22/22 Cholecalciferol [Vitamin D3 (25 25 mcg PO DAILY 04/22/22 04/22/22 Mcg = 1000 Iu)] Cyanocobalamin (Vitamin B-12) 1,000 mcg PO DAILY 04/22/22 04/22/22 [Vitamin B-12] Magnesium Oxide [Mag-Ox] 400 mg PO DAILY 04/22/22 04/22/22 Allergies Allergy/AdvReac Type Severity Reaction Status Date / Time BRAZIL NUTS Allergy Anaphylaxis Uncoded 06/30/22 08:30 Review of Systems ROS Statement: Those systems with pertinent positive or pertinent negative responses have been documented in the HPI. ROS Other: All systems not noted in ROS Statement are negative. Constitutional: Denies: fever Eyes: Denies: eye pain ENT: Denies: ear pain Respiratory: Denies: cough, dyspnea Cardiovascular: Denies: chest pain Endocrine: Reports: polydipsia, polyuria. Denies: fatigue Gastrointestinal: Denies: abdominal pain Genitourinary: Denies: dysuria Musculoskeletal: Denies: back pain Skin: Denies: rash Neurological: Denies: weakness Past Medical History Additional Past Medical History / Comment(s): CHRONIC SINUS DISORDER. CHRONIC BACK PAIN History of Any Multi-Drug Resistant Organisms: None Reported Additional Past Surgical History / Comment(s): COLONOSCOPY Past Anesthesia/Blood Transfusion Reactions: Motion Sickness Past Psychological History: No Psychological Hx Reported Smoking Status: Never smoker Past Alcohol Use History: None Reported Past Drug Use History: None Reported - Past Family History Mother Family Medical History: Cancer General Exam Limitations: no limitations General appearance: alert, in no apparent distress Head exam: Present: normocephalic Eye exam: Present: normal appearance, PERRL, EOMI ENT exam: Present: normal oropharynx Neck exam: Present: normal inspection Respiratory exam: Present: normal lung sounds bilaterally Cardiovascular Exam: Present: regular rate, normal rhythm GI/Abdominal exam: Present: soft. Absent: tenderness Extremities exam: Present: normal inspection. Absent: pedal edema, calf tenderness Neurological exam: Present: alert, oriented X3, CN II-XII intact. Absent: motor sensory deficit Expanded Neurological exam: Present: protecting the airway Patient oriented to: Present: person, place, time Speech: Present: fluid speech Cranial nerves: EOM's Intact: Normal Motor strength exam: RUE: 5, LUE: 5, RLE: 5, LLE: 5 Eye Response: (4) open spontaneously Motor Response: (6) obeys commands Verbal Response: (5) oriented Psychiatric exam: Present: normal affect, normal mood Skin exam: Present: normal color Course Vital Signs 06/30/22 06/30/22 08:25 10:06 Temperature 98.4 F Pulse Rate 75 80 Respiratory 16 16 Rate Blood Pressure 146/94 155/101 O2 Sat by Pulse 98 97 Oximetry EKG Findings - EKG Comments: EKG Findings:: Sinus rhythm with a rate of 73. CA 182. QRS 110. QT 367. QTC 394. Left axis. Incomplete right bundle-branch block. LVH criteria. No acute ST change Medical Decision Making - Medical Decision Making Patient reevaluated and states he is feeling much better. Family is now present. Patient was up and doing well this morning without any Locations and did eat breakfast. Patient then felt lightheaded and lay down. Patient was unresponsive or timeframe up to close to 10 minutes. Patient does not recall the episode. - Lab Data Result diagrams: 06/30/22 08:23 06/30/22 08:23 Lab Results 06/30/22 06/30/22 06/30/22 Range/Units 08:23 08:23 08:23 WBC 5.9 (3.8-10.6) k/uL RBC 5.33 (4.30-5.90) m/uL Hgb 16.6 (13.0-17.5) gm/dL Hct 45.2 (39.0-53.0) % MCV 84.8 (80.0-100.0) fL MCH 31.1 (25.0-35.0) pg MCHC 36.7 (31.0-37.0) g/dL RDW 12.0 (11.5-15.5) % Plt Count 186 (150-450) k/uL MPV 8.3 Neutrophils % (Manual) 58 % Lymphocytes % (Manual) 36 % Monocytes % (Manual) 2 % Eosinophils % (Manual) 3 % Basophils % (Manual) 1 % Neutrophils # (Manual) 3.42 (1.3-7.7) k/uL Lymphocytes # (Manual) 2.12 (1.0-4.8) k/uL Monocytes # (Manual) 0.12 (0-1.0) k/uL Eosinophils # (Manual) 0.18 (0-0.7) k/uL Basophils # (Manual) 0.06 (0-0.2) k/uL Nucleated RBCs 0 (0-0) /100 WBC Manual Slide Review Performed PT 10.6 (9.0-12.0) sec INR 1.0 (<1.2) APTT 26.2 (22.0-30.0) sec Sodium 137 (137-145) mmol/L Potassium 3.8 (3.5-5.1) mmol/L Chloride 104 (98-107) mmol/L Carbon Dioxide 20 L (22-30) mmol/L Anion Gap 13 mmol/L BUN 14 (9-20) mg/dL Creatinine 0.75 (0.66-1.25) mg/dL Est GFR (CKD-EPI)AfAm >90 (>60 ml/min/1.73 sqM) Est GFR (CKD-EPI)NonAf >90 (>60 ml/min/1.73 sqM) Glucose 258 H (74-99) mg/dL POC Glucose (mg/dL) (70-110) mg/dL POC Glu Bottle Booth Attendant ID Plasma Lactic Acid [place] (0.7-2.0) mmol/L Calcium 9.0 (8.4-10.2) mg/dL Magnesium 1.9 (1.6-2.3) mg/dL Total Bilirubin 0.7 (0.2-1.3) mg/dL AST 23 (17-59) U/L ALT 25 (4-49) U/L Alkaline Phosphatase 83 (38-126) U/L Troponin I (0.000-0.034) ng/mL Total Protein 6.9 (6.3-8.2) g/dL Albumin 4.3 (3.5-5.0) g/dL Urine Color Urine Appearance (Clear) Urine pH (5.0-8.0) Ur Specific [place] (1.001-1.035) Urine Protein (Negative) Urine Glucose (UA) (Negative) Urine Ketones (Negative) Urine Blood (Negative) Urine Nitrite (Negative) Urine Bilirubin (Negative) Urine Urobilinogen (<2.0) mg/dL Ur Leukocyte Esterase (Negative) Urine Opiates Screen (NotDetected) Ur Oxycodone Screen (NotDetected) Urine Methadone Screen (NotDetected) Ur Propoxyphene Screen (NotDetected) Ur Barbiturates Screen (NotDetected) U Tricyclic Antidepress (NotDetected) Ur Phencyclidine Scrn (NotDetected) Ur Amphetamines Screen (NotDetected) U Methamphetamines Scrn (NotDetected) U Benzodiazepines Scrn (NotDetected) Urine Cocaine Screen (NotDetected) U Marijuana (THC) Screen (NotDetected) Serum Alcohol <10 mg/dL Acetone, Qual Negative (Negative) 06/30/22 06/30/22 06/30/22 Range/Units 08:23 08:23 08:30 WBC (3.8-10.6) k/uL RBC (4.30-5.90) m/uL Hgb (13.0-17.5) gm/dL Hct (39.0-53.0) % MCV (80.0-100.0) fL MCH (25.0-35.0) pg MCHC (31.0-37.0) g/dL RDW (11.5-15.5) % Plt Count (150-450) k/uL MPV Neutrophils % (Manual) % Lymphocytes % (Manual) % Monocytes % (Manual) % Eosinophils % (Manual) % Basophils % (Manual) % Neutrophils # (Manual) (1.3-7.7) k/uL Lymphocytes # (Manual) (1.0-4.8) k/uL Monocytes # (Manual) (0-1.0) k/uL Eosinophils # (Manual) (0-0.7) k/uL Basophils # (Manual) (0-0.2) k/uL Nucleated RBCs (0-0) /100 WBC Manual Slide Review PT (9.0-12.0) sec INR (<1.2) APTT (22.0-30.0) sec Sodium (137-145) mmol/L Potassium (3.5-5.1) mmol/L Chloride (98-107) mmol/L Carbon Dioxide (22-30) mmol/L Anion Gap mmol/L BUN (9-20) mg/dL Creatinine (0.66-1.25) mg/dL Est GFR (CKD-EPI)AfAm (>60 ml/min/1.73 sqM) Est GFR (CKD-EPI)NonAf (>60 ml/min/1.73 sqM) Glucose (74-99) mg/dL POC Glucose (mg/dL) 264 H (70-110) mg/dL POC Glu Bottle Booth Attendant ID Jia Ledesma Plasma Lactic Acid [place] 3.9 H* (0.7-2.0) mmol/L Calcium (8.4-10.2) mg/dL Magnesium (1.6-2.3) mg/dL Total Bilirubin (0.2-1.3) mg/dL AST (17-59) U/L ALT (4-49) U/L Alkaline Phosphatase (38-126) U/L Troponin I <0.012 (0.000-0.034) ng/mL Total Protein (6.3-8.2) g/dL Albumin (3.5-5.0) g/dL Urine Color Urine Appearance (Clear) Urine pH (5.0-8.0) Ur Specific [place] (1.001-1.035) Urine Protein (Negative) Urine Glucose (UA) (Negative) Urine Ketones (Negative) Urine Blood (Negative) Urine Nitrite (Negative) Urine Bilirubin (Negative) Urine Urobilinogen (<2.0) mg/dL Ur Leukocyte Esterase (Negative) Urine Opiates Screen (NotDetected) Ur Oxycodone Screen (NotDetected) Urine Methadone Screen (NotDetected) Ur Propoxyphene Screen (NotDetected) Ur Barbiturates Screen (NotDetected) U Tricyclic Antidepress (NotDetected) Ur Phencyclidine Scrn (NotDetected) Ur Amphetamines Screen (NotDetected) U Methamphetamines Scrn (NotDetected) U Benzodiazepines Scrn (NotDetected) Urine Cocaine Screen (NotDetected) U Marijuana (THC) Screen (NotDetected) Serum Alcohol mg/dL Acetone, Qual (Negative) 06/30/22 Range/Units 09:03 WBC (3.8-10.6) k/uL RBC (4.30-5.90) m/uL Hgb (13.0-17.5) gm/dL Hct (39.0-53.0) % MCV (80.0-100.0) fL MCH (25.0-35.0) pg MCHC (31.0-37.0) g/dL RDW (11.5-15.5) % Plt Count (150-450) k/uL MPV Neutrophils % (Manual) % Lymphocytes % (Manual) % Monocytes % (Manual) % Eosinophils % (Manual) % Basophils % (Manual) % Neutrophils # (Manual) (1.3-7.7) k/uL Lymphocytes # (Manual) (1.0-4.8) k/uL Monocytes # (Manual) (0-1.0) k/uL Eosinophils # (Manual) (0-0.7) k/uL Basophils # (Manual) (0-0.2) k/uL Nucleated RBCs (0-0) /100 WBC Manual Slide Review PT (9.0-12.0) sec INR (<1.2) APTT (22.0-30.0) sec Sodium (137-145) mmol/L Potassium (3.5-5.1) mmol/L Chloride (98-107) mmol/L Carbon Dioxide (22-30) mmol/L Anion Gap mmol/L BUN (9-20) mg/dL Creatinine (0.66-1.25) mg/dL Est GFR (CKD-EPI)AfAm (>60 ml/min/1.73 sqM) Est GFR (CKD-EPI)NonAf (>60 ml/min/1.73 sqM) Glucose (74-99) mg/dL POC Glucose (mg/dL) (70-110) mg/dL POC Glu Bottle Booth Attendant ID Plasma Lactic Acid [place] (0.7-2.0) mmol/L Calcium (8.4-10.2) mg/dL Magnesium (1.6-2.3) mg/dL Total Bilirubin (0.2-1.3) mg/dL AST (17-59) U/L ALT (4-49) U/L Alkaline Phosphatase (38-126) U/L Troponin I (0.000-0.034) ng/mL Total Protein (6.3-8.2) g/dL Albumin (3.5-5.0) g/dL Urine Color Light Yellow Urine Appearance Clear (Clear) Urine pH 7.0 (5.0-8.0) Ur Specific [place] 1.009 (1.001-1.035) Urine Protein Negative (Negative) Urine Glucose (UA) 3+ H (Negative) Urine Ketones Trace H (Negative) Urine Blood Negative (Negative) Urine Nitrite Negative (Negative) Urine Bilirubin Negative (Negative) Urine Urobilinogen <2.0 (<2.0) mg/dL Ur Leukocyte Esterase Negative (Negative) Urine Opiates Screen Not Detected (NotDetected) Ur Oxycodone Screen Not Detected (NotDetected) Urine Methadone Screen Not Detected (NotDetected) Ur Propoxyphene Screen Not Detected (NotDetected) Ur Barbiturates Screen Not Detected (NotDetected) U Tricyclic Antidepress Not Detected (NotDetected) Ur Phencyclidine Scrn Not Detected (NotDetected) Ur Amphetamines Screen Not Detected (NotDetected) U Methamphetamines Scrn Not Detected (NotDetected) U Benzodiazepines Scrn Not Detected (NotDetected) Urine Cocaine Screen Not Detected (NotDetected) U Marijuana (THC) Screen Not Detected (NotDetected) Serum Alcohol mg/dL Acetone, Qual (Negative) - Radiology Data Radiology results: report reviewed (Computed tomography scan nonspecific low attenuation), image reviewed (Chest x-ray shows no acute process) Disposition Clinical Impression: Syncope Disposition: ADMITTED IP TO THIS [facility] Is patient prescribed a controlled substance at d/c from ED?: No Referrals: Jair To MD [REFERRING] - 1-2 days Time of Disposition: 10:11
[2022-06-30 08:32] LABS: Glucose,Whole Blood 264 mg/dL (70-110)
[2022-06-30 08:41] LABS: HCT 45.2 % (39.0-53.0); HGB 16.6 gm/dL (13.0-17.5); MCH 31.1 pg (25.0-35.0); MCHC 36.7 g/dL (31.0-37.0); MCV 84.8 fL (80.0-100.0); Mean Platelet Volume 8.3; Platelet Count 186 k/uL (150-450); RBC 5.33 m/uL (4.30-5.90); WBC 5.9 k/uL (3.8-10.6)
[2022-06-30 09:02] LABS: ALT 25 U/L (4-49); AST 23 U/L (17-59); African American GFR (CKD) >90 (>60 ml/min/1.73 sqM); Albumin 4.3 g/dL (3.5-5.0); Alcohol <10 mg/dL; Alkaline Phosphatase 83 U/L (38-126); Anion Gap 13 mmol/L; Blood Urea Nitrogen 14 mg/dL (9-20); Carbon Dioxide 20 mmol/L (22-30); Chloride 104 mmol/L (98-107); Glucose 258 mg/dL (74-99); Magnesium 1.9 mg/dL (1.6-2.3); Non-African American GFR(CKD) >90 (>60 ml/min/1.73 sqM); Potassium 3.8 mmol/L (3.5-5.1); Sodium 137 mmol/L (137-145); Total Bilirubin 0.7 mg/dL (0.2-1.3); Total Protein 6.9 g/dL (6.3-8.2)
[2022-06-30 09:03] LABS: Prothrombin Time 10.6 sec (9.0-12.0)
[2022-06-30 09:04] LABS: Partial Thromboplastin Time 26.2 sec (22.0-30.0)
[2022-06-30 09:05] LABS: Basophils # (M) 0.06 k/uL (0-0.2); Eosinophils # (M) 0.18 k/uL (0-0.7); Lymphocytes # (M) 2.12 k/uL (1.0-4.8); Monocytes # (M) 0.12 k/uL (0-1.0); Neutrophils # (M) 3.42 k/uL (1.3-7.7); Neutrophils % (M) 58 %; Nucleated Red Blood Cells 0 /100 WBC (0-0); Total Cells Counted 100
[2022-06-30 09:07] LABS: Appearance,Urine Clear (Clear); Bilirubin,Urine Negative (Negative); Blood,Urine Negative (Negative); Color,Urine Light Yellow; Glucose,Urine (UA) 3+ (Negative); Ketones,Urine Trace (Negative); Leukocyte Esterase,Urine Negative (Negative); Nitrite,Urine Negative (Negative); Protein,Urine Negative (Negative); Specific Gravity,Urine 1.009 (1.001-1.035); Urobilinogen,Urine <2.0 mg/dL (<2.0)
--- NOTE | 2022-06-30 09:09 | XR ---
EXAMINATION TYPE: XR chest 2V DATE OF EXAM: 06/30/2022 COMPARISON: Chest x-ray 04/22/2022 HISTORY: Weakness TECHNIQUE: Frontal and lateral views of the chest are obtained. FINDINGS: There is no focal air space opacity, pleural effusion, or pneumothorax seen. The cardiac silhouette size is within normal limits. The osseous structures are intact. IMPRESSION: No acute cardiopulmonary process.
[2022-06-30 09:17] LABS: Amphetamine Screen,Urine Not Detected (NotDetected); Barbiturate Screen,Urine Not Detected (NotDetected); Benzodiazepines Screen,Urine Not Detected (NotDetected); Cocaine Screen,Urine Not Detected (NotDetected); Methadone Screen, Urine Not Detected (NotDetected); Opiate Screen,Urine Not Detected (NotDetected); Oxycodone Screen, Urine Not Detected (NotDetected); Phencyclidine Screen,Urine Not Detected (NotDetected); Tricyclic Antidepressant,Urine Not Detected (NotDetected); Urn Cannabinoid Scrn Not Detected (NotDetected)
--- NOTE | 2022-06-30 09:56 | CT ---
EXAMINATION TYPE: CT brain wo con DATE OF EXAM: 06/30/2022 COMPARISON: None HISTORY: Weakness, altered mental status Blood sugar level >[address] DLP: 1172.9 mGycm Automated exposure control for dose reduction was used. Helical imaging through the brain. FINDINGS: There is no hemorrhage or hydrocephalus. Periventricular white matter shows patchy low attenuation. C alvarium is intact. Some mild mucosal disease noted in the maxillary sinuses, possible mucus retentio n cyst or polyp on the left, ethmoid show inflammatory changes to the frontal sinuses and mastoid air cells are well aerated. There are cerebral vascular calcifications present. May be related to chroni c small vessel ischemic changes, brain MRI may be of benefit as indicated. Additional findings above. IMPRESSION: NONSPECIFIC WHITE MATTER LOW-ATTENUATION
[2022-06-30] MEDS ORDERED: NALOXONE 0.4 MG/ML 1 ML VIAL IV PRN (10:11)
[2022-06-30] MEDS: SODIUM CHLORIDE 0.9% 1,000 ML IV SCH ×2 (10:20→22:32)
[2022-06-30] MEDS: INSULIN ASPART (NovoLOG) 100 UNIT/ML VIAL SQ SCH ×3 (11:48→21:08)
[2022-06-30 11:49] LABS: Glucose,Whole Blood 132 mg/dL (70-110)
[2022-06-30] MEDS: ATORVASTATIN 20 MG TAB PO SCH (12:12)
[2022-06-30] MEDS: LOSARTAN 25 MG TAB PO SCH (12:12)
--- NOTE | 2022-06-30 13:47 | P.CRDCN ---
History of Present Illness Consult date: 06/30/22 Consult reason: sycope History of present illness: This is Baljinder Walls NP, I'm dictating on behalf of Dr. Ruiz's H&P and A&P The patient was interviewed and examined. HPI: We were consult on this pleasant 62-year-old male for a syncopal episode. Patient states that he did not actually pass out, but had a very strange episode where he had gotten up and had breakfast, and then was having difficulty getting his brain to tell his body to move. He states that he couldn't shuffle, but it took significant mental effort to get himself to move. He reports weakness, inability to talk, but the city and was aware of his surroundings. He knew he needed to go back to bed, so the patient reports that he got himself back to his bed, but was unable to get his feet up into the bed. He sat and laid over. His reports that she woke up and noted that he was still in bed, and not at work. When she called his name, he was unable to respond, and she states he was drooling. The patient reports that he could hear her calling the could not make his mouth move, and also knew he was drooling, but was unable to stop it. She reports that she felt his breath and new he was breathing, and so called 911 at that time. EMS came and transported the patient to the hospital, where he states during the ambulance ride he would came to and was able to move and verbalize. Patient reports that he does not have a pertinent medical history. However the patient was found to have an elevated blood sugar by EMS, over 300. He reports he has not been to a physician in some time. At the time of the interview, the patient reports that he feels fine. He feels that he is back to himself, although states he does feel somewhat weak. He currently denies chest pain, shortness of breath, heart palpitations. ROS: [No fever, chills, or rigors] [no cough, phlegm, or expectoration] [no nausea, vomiting, or diarrhea] [no hematuria, dysuria] [no musculoskelatal complaints] [no strokes or seizures] [no skin lesions] EXAMINATION: GENERAL: Well-appearing, well-nourished and in no acute distress. NECK: Supple without JVD or thyromegaly. LUNGS: Breath sounds clear to auscultation bilaterally. Respiration equal and unlabored. No wheezes, rales or rhonchi. HEART: Regular rate and rhythm without murmurs, rubs or gallops. S1 and S2 heard. EXTREMITIES: Normal range of motion, no edema. No clubbing or cyanosis. Peripheral pulses intact and strong. REVIEW OF LABS, ECG & MEDICAL DATA: LABS: White count 5.9, hemoglobin 16.6, platelets 186, sodium 137, potassium 3.8, B1 14, creatinine 0.75, calcium 9.0, magnesium 1.9, troponin less than 0.0 12 EKG: Normal sinus rhythm IMAGING: X-ray of the chest dated 06/30/2022 demonstrates no acute cardi opulmonary process; CT of the brain dated 06/30/2022 demonstrates nonspecific white matter low attenuation VITALS: Temp 98.4, pulse 75, respirations 16, blood pressure 146/94, O2 saturation 98% on room air IMPRESSION: 1. Sudden onset weakness, inability to communicate, moderate loss of physical control with current unknown etiology 2. Likely hypertension 3. Likely diabetes 4. Likely hyperlipidemia PLAN: Start losartan 25 mg daily. Check lipid panel and TSH. Start atorvastatin 20 mg daily. Recommended neurology consult. Further recommendations based on patient's clinical course. Thank you for the consult and allowing us to participate in the care of this patient. Past Medical History Additional Past Medical History / Comment(s): CHRONIC SINUS DISORDER. CHRONIC BACK PAIN History of Any Multi-Drug Resistant Organisms: None Reported Past Surgical History: No Surgical Hx Reported Additional Past Surgical History / Comment(s): COLONOSCOPY Past Anesthesia/Blood Transfusion Reactions: Motion Sickness Past Psychological History: No Psychological Hx Reported Smoking Status: Never smoker Past Alcohol Use History: None Reported Past Drug Use History: None Reported - Past Family History Mother Family Medical History: Cancer Medications and Allergies Home Medications Medication Instructions Recorded Confirmed Type Ascorbic Acid [Vitamin C] 500 mg PO DAILY 04/22/22 06/30/22 History Cyanocobalamin (Vitamin B-12) 1,000 mcg PO DAILY 04/22/22 06/30/22 History [Vitamin B-12] Magnesium Oxide [Mag-Ox] 400 mg PO DAILY 04/22/22 06/30/22 History Multivit-Min/FA/Lycopen/Lutein 1 tab PO DAILY 06/30/22 06/30/22 History [Centrum Silver Men Tablet] Allergies Allergy/AdvReac Type Severity Reaction Status Date / Time BRAZIL NUTS Allergy Anaphylaxis Uncoded 06/30/22 12:04 Physical Exam Vitals: Vital Signs Temp Pulse Pulse Pulse Pulse Resp BP 06/30/22 12:17 76 80 73 06/30/22 12:00 79 16 142/95 06/30/22 10:06 80 16 155/101 06/30/22 08:25 98.4 F 75 16 146/94 BP BP BP Pulse Ox 06/30/22 12:17 145/98 148/96 140/96 06/30/22 12:00 96 06/30/22 10:06 97 06/30/22 08:25 98 Intake and Output 06/29/22 06/30/22 06/30/22 22:59 06:59 14:59 Other: Weight 90.718 kg Results 06/30/22 08:23 06/30/22 08:23 Cardiac Enzymes 06/30/22 06/30/22 Range/Units 08:23 08:23 AST 23 (17-59) U/L Troponin I <0.012 (0.000-0.034) ng/mL Coagulation 06/30/22 Range/Units 08:23 PT 10.6 (9.0-12.0) sec APTT 26.2 (22.0-30.0) sec CBC 06/30/22 Range/Units 08:23 WBC 5.9 (3.8-10.6) k/uL RBC 5.33 (4.30-5.90) m/uL Hgb 16.6 (13.0-17.5) gm/dL Hct 45.2 (39.0-53.0) % Plt Count 186 (150-450) k/uL Comprehensive Metabolic Panel 06/30/22 Range/Units 08:23 Sodium 137 (137-145) mmol/L Potassium 3.8 (3.5-5.1) mmol/L Chloride 104 (98-107) mmol/L Carbon Dioxide 20 L (22-30) mmol/L BUN 14 (9-20) mg/dL Creatinine 0.75 (0.66-1.25) mg/dL Glucose 258 H (74-99) mg/dL Calcium 9.0 (8.4-10.2) mg/dL AST 23 (17-59) U/L ALT 25 (4-49) U/L Alkaline Phosphatase 83 (38-126) U/L Total Protein 6.9 (6.3-8.2) g/dL Albumin 4.3 (3.5-5.0) g/dL Current Medications Generic Name Dose Route Start Last Admin Trade Name Freq PRN Reason Stop Dose Admin Atorvastatin Calcium 20 mg 06/30/22 11:15 06/30/22 12:12 Atorvastatin 20 Mg Tab PO 20 mg DAILY ALONDRA Administration Heparin Sodium (Porcine) 5,000 unit 06/30/22 16:00 Heparin Sodium,Porcine/Pf 5,000 Unit/0.5 Ml Syringe SQ Q8HR [facility] Sodium Chloride 1,000 mls @ 75 mls/hr 06/30/22 10:15 06/30/22 10:20 Saline 0.9% IV 75 mls/hr .[id number] ALONDRA Administration Insulin Aspart 0 unit 06/30/22 12:30 06/30/22 11:48 Insulin Aspart (Novolog) 100 Unit/Ml Vial SQ Not Given ACHS ALONDRA Protocol Losartan Potassium 25 mg 06/30/22 11:15 06/30/22 12:12 Losartan 25 Mg Tab PO 25 mg DAILY ALONDRA Administration Naloxone HCl 0.2 mg 06/30/22 10:11 Naloxone 0.4 Mg/Ml 1 Ml Vial IV Q2M PRN Opioid Reversal Intake and Output 06/29/22 06/30/22 06/30/22 22:59 06:59 14:59 Other: Weight 90.718 kg Patient Weight 07/01/22 06:59 Weight 90.718 kg 06/30/22 08:23 06/30/22 08:23
[2022-06-30] MEDS: HEPARIN SODIUM,PORCINE/PF 5,000 UNIT/0.5 ML SYRINGE SQ SCH (15:15)
[2022-06-30 16:50] LABS: Glucose,Whole Blood 122 mg/dL (70-110)
[2022-06-30 16:52] LABS: Chol/HDL Ratio 7.62 Ratio
--- NOTE | 2022-06-30 17:35 | P.CNNES ---
History of Present Illness Consult date: 06/30/22 Reason for Consult: syncope History of Present Illness: The patient is a 62-year-old male who is seen in neurologic consultation on June 30, 2022, via teleneurology. The patient reports that he did get up from bed this morning however was feeling very weak and tired. He says he was having difficulty getting his arms and legs to do what they were supposed to be doing. His brain was not controlling his body as well as it should have been he subsequently was able to make his way back to bed. His is present at the bedside at the time the history is obtained. She states that she awoke from sleep and realizes he was still in bed, not at work. She says she called out his name however he did not respond. She says that she put her hand in front of his mouth, which was agape, to check to see if he was breathing. She says she could feel his breath on her hand. The patient's also notes that the patient was drooling. She called his name again and was able to see that his eyelids word twitching. She says that she felt as if he was "in there". The patient's subsequently called 911. Apparently the tab card press operator asked the to ask the patient if he had any chest pain. The patient asked her if he had any chest pain and he was able to shake his head, slightly. When the ambulance arrived at the house, the patient continued to be unresponsive. His blood sugar was checked and it was found to be over 300. Patient's reports that there was no flinching or response of the patient, to having his finger poked. The patient himself reports that he was able to hear people calling his name. He says that he was aware that his mouth was open and that he was drooling. He says he was unable to open his eyes or close his mouth. He was unable to move any of his muscles. The patient denies a history of similar symptoms. There is no history of syncope or seizure. No history of stroke. The patient reportedly has not been to a doctor in a while. He reportedly takes no home medications o ther than vitamins. The patient does recall the ride a in the ambulance, to the hospital. He says h e began to become more aware. He began was able to open his eyes and began to respond. He recalls arriving at the emergency department. The patient denies biting his tongue. There was no reported loss of bowel or bladder control. There was no witnessed seizure-like activity. CT scan of the brain was performed in the emergency department. It was negative for acute hemorrhage and infarct. Past Medical History Additional Past Medical History / Comment(s): CHRONIC SINUS DISORDER. CHRONIC BACK PAIN History of Any Multi-Drug Resistant Organisms: None Reported Past Surgical History: No Surgical Hx Reported Additional Past Surgical History / Comment(s): COLONOSCOPY Past Anesthesia/Blood Transfusion Reactions: Motion Sickness Past Psychological History: No Psychological Hx Reported Smoking Status: Never smoker Past Alcohol Use History: None Reported Past Drug Use History: None Reported - Past Family History Mother Family Medical History: Cancer Medications and Allergies Home Medications Medication Instructions Recorded Confirmed Type Ascorbic Acid [Vitamin C] 500 mg PO DAILY 04/22/22 06/30/22 History Cyanocobalamin (Vitamin B-12) 1,000 mcg PO DAILY 04/22/22 06/30/22 History [Vitamin B-12] Magnesium Oxide [Mag-Ox] 400 mg PO DAILY 04/22/22 06/30/22 History Multivit-Min/FA/Lycopen/Lutein 1 tab PO DAILY 06/30/22 06/30/22 History [Centrum Silver Men Tablet] Allergies Allergy/AdvReac Type Severity Reaction Status Date / Time BRAZIL NUTS Allergy Anaphylaxis Uncoded 06/30/22 12:04 Physical Examination - Vital Signs Vital Signs: Vital Signs Temp Pulse Pulse Pulse Pulse Resp BP 06/30/22 12:17 76 80 73 06/30/22 12:00 79 16 142/95 06/30/22 10:06 80 16 155/101 06/30/22 08:25 98.4 F 75 16 146/94 BP BP BP Pulse Ox 06/30/22 12:17 145/98 148/96 140/96 06/30/22 12:00 96 06/30/22 10:06 97 06/30/22 08:25 98 Intake and Output 06/29/22 06/30/22 06/30/22 22:59 06:59 14:59 Other: Weight 90.718 kg Gen.: The patient is seated on the gurney in the emergency department. He is well-nourished, well-developed and in no acute distress. HEENT: Head is atraumatic, normocephalic. Fundus not visualized. There is no scleral icterus. Mucous membranes are moist. Neck: Supple without carotid bruits Heart: Regular rate and rhythm Lungs: Clear to auscultation Extremities: Without edema Neurological examination Mental status: The patient is awake, alert and oriented 3. His speech is clear. There is no dysarthria or aphasia. Cranial nerves: Pupils are equal at 3 mm and reactive. Visual jacinto are full to confrontation. Extraocular movements are intact. There is no nystagmus. Facial sensation is intact. There is no facial asymmetry. Hearing is grossly intact. Uvula and palate are midline. Shoulder shrug is symmetric. Tongue protrudes midline. There is no evidence of tongue bite area Motor: Strength is 5/5 throughout Coordination: Finger to nose and rapid alternating movements are intact Deep tendon reflexes: 1+/4+ in the bilateral upper extremities. 1+4+ at the right knee and absent at the left knee. Sensation: Grossly intact to light touch. Gait: Not assessed Results - Laboratory Findings Comments: triglycerides are markedly elevated at 573. Total cholesterol elevated at 221. HDL cholesterol was low at 29. LDL Calculated cholesterol cannot be performed secondary to markedly elevated triglycerides. CBC and BMP: 06/30/22 08:23 06/30/22 08:23 Abnormal Lab Findings: Abnormal Labs 06/30/22 06/30/22 06/30/22 08:23 08:23 08:30 Carbon Dioxide 20 L Glucose 258 H POC Glucose (mg/dL) 264 H Plasma Lactic Acid Babatunde 3.9 H* Urine Glucose (UA) Urine Ketones 06/30/22 06/30/22 09:03 11:47 Carbon Dioxide Glucose POC Glucose (mg/dL) 132 H Plasma Lactic Acid Babatunde Urine Glucose (UA) 3+ H Urine Ketones Trace H - Diagnostic Findings Comments: CT imaging of the brain is personally reviewed Assessment and Plan Assessment: 1. 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 Hyperglycemia 3. Hyperlipidemia 4. Hypertension Plan: 1. Stat CT angiogram of the head and neck to investigate occlusion and significant stenosis as etiology for possible posterior circulation TIA 2. Neuro checks to 4 hours 3. Stroke order set has been placed including 2-D echocardiogram, lipid panel, TSH, hemoglobin A1c, PT, OT and speech therapy consultations 4. The patient should be started on high-dose statin 5. Aspirin 81 mg daily should be initiated 6. EEG has been ordered to assess for seizure 7. Agree with cardiac monitoring Thank you for allowing us to participate in the care of this patient Time with Patient: Greater than 30 (Spent 50 minutes examining the patient in the emergency department, reviewing labs, imaging, documentation and preparing note)
--- NOTE | 2022-06-30 19:41 | CT ---
EXAMINATION TYPE: CT angio head neck CT DLP: 445.1 mGycm, Automated exposure control for dose reduction was used. DATE OF EXAM: 06/30/2022 6:24 PM COMPARISON: CT brain 06/30/2022 MRI brain 06/30/2022. CLINICAL INDICATION:Male, 62 years old with history of TIA, posterior circulation; PHH, TIA TECHNIQUE: Axially acquired helical CT angiogram of the head and neck was obtained with contrast. Axi al images are supplemented with 3D reconstructions [facility] NASCET criteria used. Contrast used:65cc mL of Isovue 370 with IV Contrast, Oral contrast used: None. FINDINGS: CTA HEAD: No evidence of acute intracranial hemorrhage, mass effect, or midline shift. The ventricles, sulci, a nd cisterns are unremarkable. The visualized portions of the internal carotid arteries, middle cerebral arteries, anterior cerebral arteries, and posterior cerebral arteries are patent. The right anterior cerebral artery is diminuti ve in size when compared to left but is patent. The posterior indicating arteries are not well visual ized and may be due to diminutive size versus congenital absence. The basilar and vertebral arteries are patent. CTA NECK: Right Carotid System: The common carotid artery and external carotid artery are patent. The carotid bifurcation demonstrate s no evidence of hemodynamically significant stenosis. The remaining portions of the internal carotid artery demonstrate normal size without significant narrowing. Left Carotid System: The common carotid artery and external carotid artery are patent. The carotid bifurcation demonstrate s no evidence of hemodynamically significant stenosis. The remaining portions of the internal carotid artery demonstrate normal size without significant narrowing. Vertebral arteries are patent without evidence hemodynamically significant stenosis. There is a three-vessel aortic arch. The origins of the great vessels are patent. No evidence of hemo dynamically significant stenosis. IMPRESSION: 1. No evidence of dissection of the cervical internal carotid arteries or vertebral arteries or any e vidence of significant stenosis at the carotid bifurcations. 2. No evidence of intracranial high-grade stenosis or intracranial aneurysm.
--- NOTE | 2022-06-30 21:01 | P.HPIM ---
History of Present Illness H&P Date: 06/30/22 Chief Complaint: Weakness Patient is a 62-year-old male with a known history of chronic back pain and chronic sinus disorder presents to ER via EMS. Apparently the patient he woke up in the morning and felt drowsy and unable to move or respond. Patient states that he was able to recognize that someone is calling him but could not respond. EMS was called and patient was found to be hyperglycemic with blood sugar 306. Patient denies any loss of consciousness. [place] very weak. Currently patient is able to communicate. Denies any focal weakness. No weakness or seizures noted. Denies any fever or chills. No recent illnesses. No cough or sputum production. No chest pain or shortness breath. No leg swelling. Patient has been having polyuria and polydipsia for the last few days. Chest x-ray showed no acute cardiopulmonary process. CT head showed nonspecific white matter low-attenuation. EKG showed sinus rhythm with sinus arrhythmia. Laboratory pressure WBC 5.9 hemoglobin 16.6 and platelets 186 INR 1.0 Sodium 137 potassium 3.8 chloride 104 bicarb is 20 BUN 14 and creatinine 0.75 and blood sugar is 258 and lactic acid 3.9 and liver enzymes are not elevated troponin x3 negative. Urinalysis showed 3+ glucose and trace ketones. UDS negative Serum alcohol is less than 10 is still negative. Review of Systems Constitutional: Patient denies any fever or chills . no Generalized weakness. Abdomen: Patient denied any nausea or vomiting or abd. pain Cardiovascular: Patient denies any chest pain or short of breath no palpitations. Respiratory: patient denied any cough . no sputum production. No shortness of breath Neurologic: Patient denied any numbness or tingling headache. Musculoskeletal: Patient denies any complaints of joint swelling or deformity. Skin: Negative Psychiatric: Negative Endocrine: No heat or cold intolerance. No recent weight gain. Genitourinary: No dysuria or hematuria. All other 14 point ROS negative except the above Past Medical History Additional Past Medical History / Comment(s): CHRONIC SINUS DISORDER. CHRONIC BACK PAIN History of Any Multi-Drug Resistant Organisms: None Reported Past Surgical History: No Surgical Hx Reported Additional Past Surgical History / Comment(s): COLONOSCOPY Past Anesthesia/Blood Transfusion Reactions: Motion Sickness Past Psychological History: No Psychological Hx Reported Smoking Status: Never smoker Past Alcohol Use History: None Reported Past Drug Use History: None Reported - Past Family History Mother Family Medical History: Cancer Medications and Allergies Home Medications Medication Instructions Recorded Confirmed Type Ascorbic Acid [Vitamin C] 500 mg PO DAILY 04/22/22 06/30/22 History Cyanocobalamin (Vitamin B-12) 1,000 mcg PO DAILY 04/22/22 06/30/22 History [Vitamin B-12] Magnesium Oxide [Mag-Ox] 400 mg PO DAILY 04/22/22 06/30/22 History Multivit-Min/FA/Lycopen/Lutein 1 tab PO DAILY 06/30/22 06/30/22 History [Centrum Silver Men Tablet] Allergies Allergy/AdvReac Type Severity Reaction Status Date / Time BRAZIL NUTS Allergy Anaphylaxis Uncoded 06/30/22 12:04 Physical Exam Vitals: Vital Signs Temp Pulse Pulse Pulse Pulse Resp BP 06/30/22 17:33 98 F 80 16 132/97 06/30/22 15:31 66 16 131/98 06/30/22 12:17 76 80 73 06/30/22 12:00 79 16 142/95 06/30/22 10:06 80 16 155/101 06/30/22 08:25 98.4 F 75 16 146/94 BP BP BP Pulse Ox 06/30/22 17:33 98 06/30/22 15:31 96 06/30/22 12:17 145/98 148/96 140/96 06/30/22 12:00 96 06/30/22 10:06 97 06/30/22 08:25 98 Intake and Output 06/30/22 06/30/22 06/30/22 06:59 14:59 22:59 Other: Weight 90.718 kg PHYSICAL EXAMINATION: Patient is lying in the bed comfortably, no acute distress, awake alert and o riented.. HEENT: Normocephalic. Neck is supple. Pupils reactive. Nostrils clear. Oral cavity is moist. Neck reveals no JVD, carotid bruits, or thyromegaly. CHEST EXAMINATION: Trachea is central. Symmetrical expansion. Lung jacinto clear to auscultation and percussion. CARDIAC: Normal S1, S2 with no gallops. No murmurs ABDOMEN: Soft. Bowel sounds present. Nontender. No organomegaly. No abdominal bruits. Extremities: reveal no edema. No clubbing or cyanosis Neurologically awake, alert, oriented x3 with well-coordinated movements. No focal deficits noted Skin: No rash or skin lesions. Psychiatric: Coperative. Nonsuicidal, Musculoskeletal: No joint swelling or deformity. Normal range of motion. Results CBC & Chem 7: 06/30/22 08:23 06/30/22 08:23 Labs: Abnormal Lab Results - Last 24 Hours (Table) 06/30/22 06/30/22 06/30/22 Range/Units 08:23 08:23 08:23 Carbon Dioxide 20 L (22-30) mmol/L Glucose 258 H (74-99) mg/dL POC Glucose (mg/dL) (70-110) mg/dL Hemoglobin A1c 6.7 H (0.0-6.0) % Plasma Lactic Acid Babatunde 3.9 H* (0.7-2.0) mmol/L Triglycerides (0.00-149.00) mg/dL Cholesterol (0.00-200.00) mg/dL HDL Cholesterol (40.00-60.00) mg/dL Urine Glucose (UA) (Negative) Urine Ketones (Negative) 06/30/22 06/30/22 06/30/22 Range/Units 08:30 09:03 11:16 Carbon Dioxide (22-30) mmol/L Glucose (74-99) mg/dL POC Glucose (mg/dL) 264 H (70-110) mg/dL Hemoglobin A1c (0.0-6.0) % Plasma Lactic Acid Babatunde (0.7-2.0) mmol/L Triglycerides 573.00 H (0.00-149.00) mg/dL Cholesterol 221.00 H (0.00-200.00) mg/dL HDL Cholesterol 29.00 L (40.00-60.00) mg/dL Urine Glucose (UA) 3+ H (Negative) Urine Ketones Trace H (Negative) 06/30/22 06/30/22 Range/Units 11:47 16:47 Carbon Dioxide (22-30) mmol/L Glucose (74-99) mg/dL POC Glucose (mg/dL) 132 H 122 H (70-110) mg/dL Hemoglobin A1c (0.0-6.0) % Plasma Lactic Acid Babatunde (0.7-2.0) mmol/L Triglycerides (0.00-149.00) mg/dL Cholesterol (0.00-200.00) mg/dL HDL Cholesterol (40.00-60.00) mg/dL Urine Glucose (UA) (Negative) Urine Ketones (Negative) Thrombosis Risk Factor Assmnt - DVT/VTE Prophylaxis DVT/VTE Prophylaxis: Pharmacologic Prophylaxis ordered Assessment and Plan Assessment: Sudden loss of muscle tone/ weakness but patient was able to hear but unable to respond. Possible TIA related to posterior circulation. Hyperglycemia with new onset diabetes type 2 Polyuria and polydipsia Hypertension Hyperlipidemia DVT prophylaxis Heparin subcu Plan: Patient will be continued on IV hydration with normal saline and continue with insulin sliding scale. Follow-up A1c level. Started on aspirin 81 mg daily. Neurology was consulted. Stroke work-up including CT angio of the head and neck was ordered. Follow-up 2D echocardiogram and EEG report. MRI of the brain was ordered as well. Continue to follow closely.Patient is improved symptomatically. Time with Patient: Greater than 30
[2022-06-30 21:08] LABS: Glucose,Whole Blood 123 mg/dL (70-110)
[2022-06-30] MEDS: ASPIRIN 81 MG PO SCH (22:31)
[2022-07-01] MEDS: HEPARIN SODIUM,PORCINE/PF 5,000 UNIT/0.5 ML SYRINGE SQ SCH ×4 (00:14→23:35)
[2022-07-01 07:36] LABS: Glucose,Whole Blood 181 mg/dL (70-110)
[2022-07-01] MEDS: LOSARTAN 25 MG TAB PO SCH (08:40)
[2022-07-01] MEDS: INSULIN ASPART (NovoLOG) 100 UNIT/ML VIAL SQ SCH ×4 (08:40→20:31)
[2022-07-01] MEDS: ATORVASTATIN 20 MG TAB PO SCH (08:40)
[2022-07-01] MEDS: ASPIRIN 81 MG PO SCH (08:40)
[2022-07-01] MEDS: EZETIMIBE 10 MG TAB PO SCH (08:40)
[2022-07-01] MEDS: metFORMIN 500 MG TAB PO SCH ×2 (08:43→17:19)
[2022-07-01 10:16] LABS: HCT 44.9 % (39.0-53.0); HGB 16.2 gm/dL (13.0-17.5); MCH 30.9 pg (25.0-35.0); MCHC 36.1 g/dL (31.0-37.0); MCV 85.6 fL (80.0-100.0); Mean Platelet Volume 8.7; Platelet Count 174 k/uL (150-450); RBC 5.25 m/uL (4.30-5.90); RDW 12.5 % (11.5-15.5); WBC 6.7 k/uL (3.8-10.6)
[2022-07-01 10:41] LABS: African American GFR (CKD) >90 (>60 ml/min/1.73 sqM); Anion Gap 8 mmol/L; Blood Urea Nitrogen 13 mg/dL (9-20); Calcium 8.8 mg/dL (8.4-10.2); Carbon Dioxide 25 mmol/L (22-30); Chloride 104 mmol/L (98-107); Glucose 130 mg/dL (74-99); Non-African American GFR(CKD) >90 (>60 ml/min/1.73 sqM); Potassium 4.3 mmol/L (3.5-5.1); Sodium 137 mmol/L (137-145)
[2022-07-01 10:57] LABS: Eosinophils # (M) 0.27 k/uL (0-0.7); Lymphocytes # (M) 1.88 k/uL (1.0-4.8); Monocytes # (M) 0.13 k/uL (0-1.0); Neutrophils # (M) 4.42 k/uL (1.3-7.7); Neutrophils % (M) 66 %; Nucleated Red Blood Cells 0 /100 WBC (0-0); Total Cells Counted 100
[2022-07-01 12:24] LABS: Glucose,Whole Blood 129 mg/dL (70-110)
--- NOTE | 2022-07-01 13:22 | P.PN ---
Subjective Progress Note Date: 07/01/22 This is Baljinder Walls NP, I'm dictating on behalf of Dr. Ruiz's H&P and A&P. Patient was interviewed and examined. Patient is a pleasant 62-year-old male who initially presented to hospital with an episode of severe weakness and inability to adequately control his bodily movements. Patient reports today that he is completely fine. He states he's had no symptoms since admission. He overall feels okay. He denies chest pain, shortness of breath, heart palpitations, dizziness. GENERAL: Well-appearing, well-nourished and in no acute distress. NECK: Supple without JVD or thyromegaly. LUNGS: Breath sounds clear to auscultation bilaterally. Respiration equal and unlabored. No wheezes, rales or rhonchi. HEART: Regular rate and rhythm without murmurs, rubs or gallops. S1 and S2 heard. EXTREMITIES: Normal range of motion, no edema. No clubbing or cyanosis. Peripheral pulses intact and strong. VITALS: Temp 98.1, pulse 75, respirations 16, blood pressure 132/82, O2 saturation 92% on room air TELEMETRY: Normal sinus rhythm LABS: White count 6.7, hemoglobin 16.2, platelets 174, sodium 137, potassium 4.3, B1 13, creatinine 0.72, calcium 8.8 IMPRESSION: 1. TIA 2. Hypertension 3. Prediabetes 4. Hyperlipidemia, with hypertriglyceridemia PLAN: Continue losartan 25 mg daily Add Zetia in addition to atorvastatin Start Metformin 500 mg twice a day Continue to follow neurology recommendations Further recommendations based on patient's clinical course. Objective - Vital Signs Vital signs: Vital Signs Temp 98.1 F 07/01/22 07:00 Pulse 75 07/01/22 07:00 Resp 16 07/01/22 07:00 BP 132/82 07/01/22 07:00 Pulse Ox 92 L 07/01/22 07:00 FiO2 Intake & Output 06/30/22 07/01/22 07/01/22 18:59 06:59 18:59 Intake Total 1625 480 Balance 1625 480 Weight 90.718 kg Intake: Intake, IV Titration 1125 Amount Sodium Chloride 0.9% 1, 1125 000 ml @ 75 mls/hr IV . [id number] Rx#:[id number] Oral 500 480 Other: # Voids 2 - Labs CBC & Chem 7: 07/01/22 09:55 07/01/22 09:55 Labs: Abnormal Lab Results - Last 24 Hours (Table) 06/30/22 06/30/22 06/30/22 Range/Units 08:23 11:16 16:47 Glucose (74-99) mg/dL POC Glucose (mg/dL) 122 H (70-110) mg/dL Hemoglobin A1c 6.7 H (0.0-6.0) % Triglycerides 573.00 H (0.00-149.00) mg/dL Cholesterol 221.00 H (0.00-200.00) mg/dL HDL Cholesterol 29.00 L (40.00-60.00) mg/dL 06/30/22 07/01/22 07/01/22 Range/Units 21:06 07:34 09:55 Glucose 130 H (74-99) mg/dL POC Glucose (mg/dL) 123 H 181 H (70-110) mg/dL Hemoglobin A1c (0.0-6.0) % Triglycerides (0.00-149.00) mg/dL Cholesterol (0.00-200.00) mg/dL HDL Cholesterol (40.00-60.00) mg/dL 07/01/22 Range/Units 12:23 Glucose (74-99) mg/dL POC Glucose (mg/dL) 129 H (70-110) mg/dL Hemoglobin A1c (0.0-6.0) % Triglycerides (0.00-149.00) mg/dL Cholesterol (0.00-200.00) mg/dL HDL Cholesterol (40.00-60.00) mg/dL
[2022-07-01] MEDS: SODIUM CHLORIDE 0.9% 1,000 ML IV SCH (14:43)
--- NOTE | 2022-07-01 16:38 | P.PN ---
Subjective Progress Note Date: 07/01/22 The patient is a 62-year-old male who is seen in neurologic follow-up on July 01, 2022, via teleneurology. The patient reports feeling fine today. He had no further episodes of inability to move. He reports sleeping well. There were no episodes of syncope. The patient denies a history of sleep apnea, snoring, sleepwalking and sleep paralysis. June 30, 2022 The patient reports that he did get up from bed this morning however was feeling very weak and tired. He says he was having difficulty getting his arms and legs to do what they were supposed to be doing. His brain was not controlling his body as well as it should have been he subsequently was able to make his way back to bed. His is present at the bedside at the time the history is obtained. She states that she awoke from sleep and realizes he was still in bed, not at work. She says she called out his name however he did not respond. She says that she put her hand in front of his mouth, which was agape, to check to see if he was breathing. She says she could feel his breath on her hand. The patient's also notes that the patient was drooling. She called his name again and was able to see that his eyelids word twitching. She says that she felt as if he was "in there". The patient's subsequently called 911. Apparently the gripper machine operator asked the to ask the patient if he had any chest pain. The patient asked her if he had any chest pain and he was able to shake his head, slightly. When the ambulance arrived at the house, the patient continued to be unresponsive. His blood sugar was checked and it was found to be over 300. Patient's reports that there was no flinching or response of the patient, to having his finger poked. The patient himself reports that he was able to hear people calling his name. He says that he was aware that his mouth was open and that he was drooling. He says he was unable to open his eyes or close his mouth. He was unable to move a ny of his muscles. The patient denies a history of similar symptoms. There is no history of syncope or seizure. No history of stroke. The patient reportedly has not been to a doctor in a while. He reportedly takes no home medications other than vitamins. The patient does recall the ride a in the ambulance, to the hospital. He says he began to become more aware. He began was able to open his eyes and began to respond. He recalls arriving at the emergency department. The patient denies biting his tongue. There was no reported loss of bowel or bladder control. There was no witnessed seizure-like activity. CT scan of the brain was performed in the emergency department. It was negative for acute hemorrhage and infarct. Objective - Vital Signs Vital signs: Vital Signs Temp 98.1 F 07/01/22 07:00 Pulse 75 07/01/22 07:00 Resp 16 07/01/22 07:00 BP 132/82 07/01/22 07:00 Pulse Ox 92 L 07/01/22 07:00 FiO2 Intake & Output 06/30/22 07/01/22 07/01/22 18:59 06:59 18:59 Intake Total 1625 480 Balance 1625 480 Weight 90.718 kg Intake: Intake, IV Titration 1125 Amount Sodium Chloride 0.9% 1, 1125 000 ml @ 75 mls/hr IV . [id number] [facility] Rx#:[id number] Oral 500 480 Other: # Voids 2 - Exam Gen.: The patient is seated in the bed. He is well-nourished, well-developed and in no acute distress. The patient's is present at the bedside at the time of the evaluation HEENT: Head is atraumatic, normocephalic. Fundus not visualized. There is no scleral icterus. Mucous membranes are moist. Neck: Supple without carotid bruits Heart: Regular rate and rhythm Lungs: Clear to auscultation Extremities: Without edema Neurological examination Mental status: The patient is awake, alert and oriented 3. His speech is clear. There is no dysarthria or aphasia. Cranial nerves: Pupils are equal at 3 mm and reactive. Visual jacinto are full to confrontation. Extraocular movements are intact. There is no nystagmus. Facial sensation is intact. There is no facial asymmetry. Hearing is grossly intact. Uvula and palate are midline. Shoulder shrug is symmetric. Tongue protrudes midline. There is no evidence of tongue bite area Motor: Strength is 5/5 throughout - Labs CBC & Chem 7: 07/01/22 09:55 07/01/22 09:55 Labs: Abnormal Lab Results - Last 24 Hours (Table) 06/30/22 06/30/22 06/30/22 Range/Units 08:23 11:16 11:47 Glucose (74-99) mg/dL POC Glucose (mg/dL) 132 H (70-110) mg/dL Hemoglobin A1c 6.7 H (0.0-6.0) % Triglycerides 573.00 H (0.00-149.00) mg/dL Cholesterol 221.00 H (0.00-200.00) mg/dL HDL Cholesterol 29.00 L (40.00-60.00) mg/dL 06/30/22 06/30/22 07/01/22 Range/Units 16:47 21:06 07:34 Glucose (74-99) mg/dL POC Glucose (mg/dL) 122 H 123 H 181 H (70-110) mg/dL Hemoglobin A1c (0.0-6.0) % Triglycerides (0.00-149.00) mg/dL Cholesterol (0.00-200.00) mg/dL HDL Cholesterol (40.00-60.00) mg/dL 07/01/22 Range/Units 09:55 Glucose 130 H (74-99) mg/dL POC Glucose (mg/dL) (70-110) mg/dL Hemoglobin A1c (0.0-6.0) % Triglycerides (0.00-149.00) mg/dL Cholesterol (0.00-200.00) mg/dL HDL Cholesterol (40.00-60.00) mg/dL Assessment and Plan Assessment: 1. 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 Hyperglycemia 3. Hyperlipidemia 4. Hypertension Plan: 1. MRI of brain 2. Neuro checks to 8 hours 3. Stroke order set has been placed including 2-D echocardiogram, lipid panel, TSH, hemoglobin A1c, PT, OT and speech therapy consultations 4. The patient should be started on high-dose statin 5. Aspirin 81 mg daily should be initiated 6. EEG has been ordered to assess for seizure 7. Agree with cardiac monitoring Thank you for allowing us to participate in the care of this patient Dr. Bethea will assume neurologic coverage of this patient as of July 02, 2022 Time with Patient: Less than 30 (spent 20 minutes examining patient, reviewing imaging, labs, documentation and preparing a note)
[2022-07-01 16:49] LABS: Glucose,Whole Blood 125 mg/dL (70-110)
[2022-07-01 20:30] LABS: Glucose,Whole Blood 130 mg/dL (70-110)
--- NOTE | 2022-07-02 02:40 | P.PN ---
Subjective Progress Note Date: 07/01/22 Patient is a 62-year-old male with a known history of chronic back pain and chronic sinus disorder presents to ER via EMS. Apparently the patient he woke up in the morning and felt drowsy and unable to move or respond. Patient states that he was able to recognize that someone is calling him but could not respond. EMS was called and patient was found to be hyperglycemic with blood sugar 306. Patient denies any loss of consciousness. [place] very weak. Currently patient is able to communicate. Denies any focal weakness. No weakness or seizures noted. Denies any fever or chills. No recent illnesses. No cough or sputum production. No chest pain or shortness breath. No leg swelling. Patient has been having polyuria and polydipsia for the last few days. Chest x-ray showed no acute cardiopulmonary process. CT head showed nonspecific white matter low-attenuation. EKG showed sinus rhythm with sinus arrhythmia. Laboratory pressure WBC 5.9 hemoglobin 16.6 and platelets 186 INR 1.0 Sodium 137 potassium 3.8 chloride 104 bicarb is 20 BUN 14 and creatinine 0.75 and blood sugar is 258 and lactic acid 3.9 and liver enzymes are not elevated troponin x3 negative. Urinalysis showed 3+ glucose and trace ketones. UDS negative Serum alcohol is less than 10 is still negative. 07/01/2022 Patient is currently lying in the bed. Awake alert and oriented x3. No complaints of weakness today. No headache or dizziness or lightheadedness. No complaints of chest pain or shortness of breath Patient is undergoing neurological work-up including MRI of the brain. Evaluated patient does have new onset diabetes with A1c level 6.7. Will be started on metformin 5 mg twice daily. No complaints of fever or chills. No cough or sputum production. No other acute overnight issues. Laboratory pressure WBC 6.7 hemoglobin 16.1 platelets 174 Sodium 137 potassium 4.3 chloride 104 bicarb 25 BUN 39 creatinine 0.73 and blood sugar is 130 this morning. Neurology and cardiology is on board. Current medications reviewed.. Objective - Vital Signs Vital signs: Vital Signs Temp 98.3 F 07/01/22 13:46 Pulse 74 07/01/22 13:46 Resp 16 07/01/22 13:46 BP 129/75 07/01/22 13:46 Pulse Ox 98 07/01/22 13:46 FiO2 Intake & Output 06/30/22 07/01/22 07/01/22 18:59 06:59 18:59 Intake Total 1625 598 Balance 1625 598 Weight 90.718 kg Intake: Intake, IV Titration 1125 Amount Sodium Chloride 0.9% 1, 1125 000 ml @ 75 mls/hr IV . [id number] [facility] Rx#:[id number] Oral 500 598 Other: # Voids 2 2 - Exam PHYSICAL EXAMINATION: Patient is lying in the bed comfortably, no acute distress, awake alert and oriented.. HEENT: Normocephalic. Neck is supple. Pupils reactive. Nostrils clear. Oral cavity is moist. Neck reveals no JVD, carotid bruits, or thyromegaly. CHEST EXAMINATION: Trachea is central. Symmetrical expansion. Lung jacinto clear to auscultation and percussion. CARDIAC: Normal S1, S2 with no gallops. No murmurs ABDOMEN: Soft. Bowel sounds present. Nontender. No organomegaly. No abdominal bruits. Extremities: reveal no edema. No clubbing or cyanosis Neurologically awake, alert, oriented x3 with well-coordinated movements. No focal deficits noted Skin: No rash or skin lesions. Psychiatric: Coperative. Nonsuicidal, Musculoskeletal: No joint swelling or deformity. Normal range of motion. - Labs CBC & Chem 7: 07/01/22 09:55 07/01/22 09:55 Labs: Abnormal Lab Results - Last 24 Hours (Table) 06/30/22 07/01/22 07/01/22 Range/Units 21:06 07:34 09:55 Glucose 130 H (74-99) mg/dL POC Glucose (mg/dL) 123 H 181 H (70-110) mg/dL 07/01/22 07/01/22 Range/Units 12:23 16:48 Glucose (74-99) mg/dL POC Glucose (mg/dL) 129 H 125 H (70-110) mg/dL Assessment and Plan Assessment: Sudden loss of muscle tone/ weakness but patient was able to hear but unable to respond. Possible TIA related to posterior circulation. Hyperglycemia with new onset diabetes type 2 Polyuria and polydipsia Hypertension Hyperlipidemia DVT prophylaxis Heparin subcu Plan: Patient will be continued on IV hydration with normal saline and continue with insulin sliding scale. 6.7 A1c level. Patient was started on metformin. Started on aspirin 81 mg daily. Neurology was consulted. Stroke work-up including CT angio of the head and neck was ordered. Follow-up 2D echocardiog abram and EEG report. MRI of the brain was ordered as well. Continue to follow closely.Patient is improved symptomatically. Time with Patient: Greater than 30
[2022-07-02] MEDS: SODIUM CHLORIDE 0.9% 1,000 ML IV SCH ×2 (05:09→17:49)
[2022-07-02 08:59] VITALS: RESP 18
[2022-07-02 08:59] LABS: Glucose,Whole Blood 220 mg/dL (70-110)
[2022-07-02] MEDS ORDERED: LOSARTAN 50 MG TAB PO SCH (09:00)
[2022-07-02] MEDS: metFORMIN 500 MG TAB PO SCH ×2 (09:23→17:51)
[2022-07-02] MEDS: HEPARIN SODIUM,PORCINE/PF 5,000 UNIT/0.5 ML SYRINGE SQ SCH ×2 (09:24→17:49)
[2022-07-02] MEDS: INSULIN ASPART (NovoLOG) 100 UNIT/ML VIAL SQ SCH ×3 (09:24→17:49)
[2022-07-02] MEDS: ATORVASTATIN 20 MG TAB PO SCH (09:24)
[2022-07-02] MEDS: ASPIRIN 81 MG PO SCH (09:24)
[2022-07-02] MEDS: EZETIMIBE 10 MG TAB PO SCH (09:24)
--- NOTE | 2022-07-02 09:50 | CA ---
Transthoracic Echo Report Name: Mac Miller Age: 62 Gender: M : 1960 Exam Date: 07/02/2022 09:08 Exam Location: [facility] Ht (in): 72 Wt (lb): 200 Ordering Physician: Jose D Domingo MD ([id number]) Attending/Referring Phys: Float Phlebotomist Ivory Mcnamara RDCS Procedure CPT: Indications: sycope Cardiac Hx: Technical Quality: Contrast 1: Total Dose (mL): Contrast 2: Total Dose (mL): MEASUREMENTS (Male / Female) Normal Values 2D ECHO LV Diastolic Diameter PLAX 4.2 cm 4.2 - 5.9 / 3.9 - 5.3 cm LV Systolic Diameter PLAX 3.1 cm IVS Diastolic Thickness 1.0 cm 0.6 - 1.0 / 0.6 - 0.9 cm LVPW Diastolic Thickness 1.2 cm 0.6 - 1.0 / 0.6 - 0.9 cm LV Relative Wall Thickness 0.5 RV Internal Dim ED PLAX 2.2 cm LA Volume 58.1 cm??? 18 - 58 / 22 - 52 cm??? M-MODE Aortic Root Diameter MM 3.8 cm LA Systolic Diameter MM 3.4 cm LA Ao Ratio MM 0.9 MV E Point Septal Separation 1.1 cm AV Cusp Separation MM 2.7 cm DOPPLER MV Area PHT 3.2 cm??? Mitral E Point Velocity 69.4 cm/s Mitral A Point Velocity 98.4 cm/s Mitral E to A Ratio 0.7 MV Deceleration Time 238.5 ms MV E' Velocity 6.9 cm/s Mitral E to MV E' Ratio 10.1 FINDINGS Left Ventricle Normal Left ventricular size, wall thickness, systolic function with no obvious regional wall motion abnormalities .left ventricular ejection fraction is estimated at 55-60%. Right Ventricle Normal right ventricular size and function. Right ventricular systolic pressure within normal limits. Right Atrium Normal right atrial size. Left Atrium Normal left atrial size. Mitral Valve Structurally normal mitral valve. Mild mitral regurgitation. Aortic Valve Trileaflet aortic valve. Tricuspid Valve Structurally normal tricuspid valve. Pulmonic Valve Pulmonic valve not well visualized. Pericardium Normal pericardium. Aorta Normal size aortic root and proximal ascending aorta. CONCLUSIONS Normal LV size and systolic function. No significant abnormality in the Doppler exam. No pericardial effusion Previewed by: Dr. Jose D Domingo MD (Electronically Signed) Final Date: 02 July 2022 09:49
--- NOTE | 2022-07-02 12:33 | PN ---
PROGRESS NOTE SUBJECTIVE: This gentleman came into the hospital with episode of feeling suddenly weak and immobile. This episode is somewhat unusual. He has not had recurrence. No evidence of any arrhythmia. He has diabetes, and I am recommending that we add losartan 50 mg daily. He has no further symptoms. I am advising that he can get up, walk around, and ambulate as tolerated. We will obtain echocardiogram to assess LV function. OBJECTIVE: VITAL SIGNS: Stable. NECK: No JVD. HEART: S1, S2 heard normally. LUNGS: Clear. ABDOMEN: Unchanged. LOWER EXTREMITIES: Unchanged. PLAN: Plan is to increase activity and increase losartan from 25 to 50 mg daily. Check echocardiogram, and he can be discharged when okayed by Neurology. We will see him as needed. MMYUMIKOL / MAGALIN: [id number] /
--- NOTE | 2022-07-02 13:09 | MR ---
EXAMINATION TYPE: MR brain wo/w con DATE OF EXAM: 07/02/2022 COMPARISON: CT brain 2 days ago HISTORY: Seizure TECHNIQUE: Multiplanar, multisequence images of the brain and brainstem is performed without and with IV contras t, utilizing 9 mL intravenous Gadavist . FINDINGS: Diffusion weighted images demonstrate no evidence of a recent infarct or other diffusion ab normality. The ventricular system and cisternal spaces are normal in size and appearance. The brain volume is age appropriate. Occasional scattered small focus of T2 hyperintensity seen throughout the white matter bilaterally. Approximately 10 scattered lesions are seen. Lesion is nonspecific in appea cr and distribution. T2 coronal weighted images show hippocampal gyri appear symmetric and felt wi thin normal limits. Midline structures demonstrate normal morphology. The craniocervical junction appears within normal limits. Post contrast images demonstrate no abnormal enhancement. The dural venous sinuses appear pa tent. Mild mucosal thickening anterior ethmoid sinuses bilaterally otherwise paranasal sinuses are cl ear. Globes are intact bilaterally. IMPRESSION: Mild to minimal nonspecific white matter changes present on the basis of product of chron ic small vessel ischemic change in patient of this age. No enhancing masses are evident.
[2022-07-02 13:56] LABS: Glucose,Whole Blood 101 mg/dL (70-110)
[2022-07-02 17:31] LABS: Glucose,Whole Blood 146 mg/dL (70-110)
[2022-07-02 19:26] VITALS: BP 135/88; PULSE 80; TEMP 97.8
--- NOTE | 2022-07-03 03:40 | EEG ---
ELECTROENCEPHALOGRAM REPORT PREAMBLE: This is a 62-year-old male with episode of loss of consciousness. The patient had difficulty moving arms and legs. The patient's eyelids were twitching and he was drooling. No seizure-like activity noticed otherwise. CURRENT MEDICATIONS: 1. Aspirin. 2. Lipitor. 3. Zetia. 4. NovoLog. 5. Cozaar. EEG FINDINGS: This is a 21-channel digital EEG recorded with video component, utilizing 10/20 international system with referential and bipolar montages. Background consists of well developed, well regulated, moderate voltage activity in 8 hertz alpha, mixed with low-voltage fast frequency beta activity seen in bihemispheric region. Background is posterior dominant and reactive to eye opening and closing. Photic driving response was not clearly seen. Drowsiness and then stage 2 sleep was attained with appearance of vertex waves, sleep spindles during most of the middle and a later part of the study. No focal or generalized epileptiform activity was seen. IMPRESSION: This is a normal EEG during wakefulness, drowsiness, and stage 2 sleep. No focal, lateralized or epileptiform activity was seen. MMODL / IJN: [id number] /
--- NOTE | 2022-07-03 11:10 | P.PN ---
Subjective Progress Note Date: 07/02/22 Patient was seen for a follow-up. Patient's was also present at the time of this interview. On Saturday, 2 days ago at around 7:30 PM, just prior to arrival, patient was standing in the kitchen, when he suddenly froze. He hanged on to the counter to prevent the fall. He stayed there standing for about half an hour, until his knee started hurting and his helped him down in the bed. He was laying on the right side, and was slobbering. He tried to pull his saliva back, but could not do it . He knew what was going on, but could not move, could not react or speak. Patient's believes that the episode lasted for about 30-40 minutes (around 30 minutes of standing still hanging onto the counter, and another 10 minutes in the bed before he came around and started talking). At present he feels fine. Denies any focal symptoms. His blood sugar was elevated 306 as per EMS flow sheet. No prior history of diabetes. No history of tobacco or alcohol use. He does have history of hypertension. Telemetric monitoring showing sinus rhythm. Objective - Vital Signs Vital signs: Vital Signs Temp 98.0 F 07/02/22 15:00 Pulse 90 07/02/22 15:00 Resp 18 07/02/22 15:00 BP 118/75 07/02/22 15:00 Pulse Ox 96 07/02/22 15:00 FiO2 Intake & Output 07/01/22 07/02/22 07/02/22 18:59 06:59 18:59 Intake Total 838 118 Balance 838 118 Intake: Oral 838 118 Other: # Voids 2 1 2 - Exam Patient's mental status, speech and language functions are normal. - Labs CBC & Chem 7: 07/01/22 09:55 07/01/22 09:55 Labs: Abnormal Lab Results - Last 24 Hours (Table) 07/01/22 07/02/22 07/02/22 Range/Units 20:28 08:57 17:29 POC Glucose (mg/dL) 130 H 220 H 146 H (70-110) mg/dL Assessment and Plan Assessment: 1. 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 Hyperglycemia, probably new onset diabetes with A1c 6.7 3. Hyperlipidemia 4. Hypertension Plan: 1. MRI of brain revealed mild to minimal nonspecific white matter changes related to small vessel disease. No acute process. I personally reviewed MRI, agree with the findings. 2. CTA of head and neck revealed no evidence of dissection of the cervical internal carotid arteries or vertebral arteries or any evidence of significant stenosis in the carotid bifurcation. No evidence of intracranial high-grade stenosis or intracranial aneurysm. 3. 2-D echocardiogram revealed normal left-ventricular size and systolic function. EF is normal 55-60%. Left atrial size is normal. 4. Lipid panel with cholesterol 221, LDL 106, HDL 29 and triglycerides 573. Agree with starting Lipitor 20 mg daily. 5. Hemoglobin A1c 6.7, suggestive of mild diabetes. Recommend healthy lifestyles. Internal medicine to address further. 6. TSH 1.75 7. Start Aspirin 81 mg daily for stroke prevention. 8. EEG was normal during wakefulness, drowsiness and stage II sleep. No epileptiform activity was seen. No indication for AED. 9. Blood pressure is well controlled, 135/88. 10. Patient had unclear episode of abnormal responsiveness as mentioned above. Possible TIA, less likely seizure. Suggest holding off on driving, climbing ladders, operating dangerous machinery or unsupervised swimming for 6 months. Discussed with patient and his in detail. They expressed understanding. 11. Neurologically clear for discharge.
--- NOTE | 2022-07-06 15:41 | P.DS ---
Providers Date of admission: 06/30/22 10:35 Expected date of discharge: 07/02/22 Attending physician: Christina Allen Consults: 06/30/22 10:11 Consult Physician Routine Consulting Provider: Nirmal Ruiz Consult Reason/Comments: syncope Do you want consulting provider notified?: Yes Consult Physician Routine Consulting Provider: Katty Campbell Consult Reason/Comments: syncope Do you want consulting provider notified?: Yes Primary care physician: Stated None Hospital Course: Final diagnosis Sudden loss of muscle tone/ weakness but patient was able to hear but unable to respond. Possible TIA related to posterior circulation. Hyperglycemia with new onset diabetes type 2 Polyuria and polydipsia Hypertension Hyperlipidemia DVT prophylaxis Discharge disposition Patient is being discharged in a stable condition with guarded prognosis to home. Patient will follow-up with Dr. To in the outpatient setting upon discharge. Patient is to follow-up with cardiology along with neurology in the outpatient setting as scheduled. Patient with new onset diabetes and has been started on metformin and working on getting a prescription to the patient for a glucometer. Total time taken is greater than 35 minutes. Hospital course This is a 62 year-old male who was recently admitted with chest pain and decreased ability to move or respond. Patient was evaluated by cardiology and also neurology undergoing neurological workup. EEG was negative and MRI of the brain with no acute findings as well. Patient has been cleared by cardiology along with neurology for close outpatient follow-up. Patient also with new onset diabetes has been started on metformin and encourage the patient to follow-up with primary care provider this week and also obtain a glucometer and monitor blood sugars and keep a diary of the readings. Patient encouraged to follow with heart healthy diabetic diet. Patient reports to feeling well and would like to go home. Currently no reports of chest pain, shortness of breath, or palpitations. Patient is afebrile. No reports of nausea or vomiting and patient is tolerating diet. Patient will discharged home today. Physical exam: Gen: This is a 62-year-old male awake, alert and oriented 3, well-developed, well-nourished HEENT: Head is atraumatic, normocephalic. Pupils equal, round. Sclerae is anicteric. NECK: Supple. No JVD. No lymphadenopathy. No thyromegaly. LUNGS: Diminished breath sounds bilaterally with no wheezes or rhonchi. No intercostal retractions. HEART: S1, S2 are muffled ABDOMEN: Soft. Bowel sounds are present. No masses. No tenderness. EXTREMITIES: No pedal edema. No calf tenderness. NEUROLOGICAL: Patient is awake, alert and oriented x3. Cranial nerves 2 through 12 are grossly intact. Please refer to medication reconciliation sheet for a list of medications. The impression and plan of care has been dictated by Johana Dong, Nurse Practitioner as directed. Dr. Reinaldo MD I have performed a history and examination and MDM of this patient, discussed the same with the dictator, and agree with the dictator's assessment and plan as written ,documented as a scribe. Based on total visit time, I have performed more than 50% of the visit. Patient Condition at Discharge: Fair Plan - Discharge Summary Discharge Rx Participant: No New Discharge Prescriptions: New Losartan [Cozaar] 50 mg PO DAILY #30 tab Ezetimibe [Zetia] 10 mg PO DAILY #30 tab Aspirin 81 mg PO DAILY #30 tab metFORMIN HCL [Glucophage] 500 mg PO BID-W/MEALS #60 tab Atorvastatin [Lipitor] 20 mg PO DAILY 30 Days #30 tab Continue Magnesium Oxide [Mag-Ox] 400 mg PO DAILY Multivit-Min/FA/Lycopen/Lutein [Centrum Silver Men Tablet] 1 tab PO DAILY Cyanocobalamin (Vitamin B-12) [Vitamin B-12] 1,000 mcg PO DAILY Ascorbic Acid [Vitamin C] 500 mg PO DAILY Discharge Medication List Ascorbic Acid [Vitamin C] 500 mg PO DAILY 04/22/22 [History] Cyanocobalamin (Vitamin B-12) [Vitamin B-12] 1,000 mcg PO DAILY 04/22/22 [History] Magnesium Oxide [Mag-Ox] 400 mg PO DAILY 04/22/22 [History] Multivit-Min/FA/Lycopen/Lutein [Centrum Silver Men Tablet] 1 tab PO DAILY 06/30/22 [History] Aspirin 81 mg PO DAILY #30 tab 07/02/22 [Rx] Atorvastatin [Lipitor] 20 mg PO DAILY 30 Days #30 tab 07/02/22 [Rx] Ezetimibe [Zetia] 10 mg PO DAILY #30 tab 07/02/22 [Rx] Losartan [Cozaar] 50 mg PO DAILY #30 tab 07/02/22 [Rx] metFORMIN HCL [Glucophage] 500 mg PO BID-W/MEALS #60 tab 07/02/22 [Rx] Follow up Appointment(s)/Referral(s): Jair To MD [REFERRING] - 1-2 days Marco A Sevilla MD [Medical Doctor] - 1 Week Jose D Domingo MD [STAFF PHYSICIAN] - 1 Week Activity/Diet/Wound Care/Special Instructions: activity limited until follow up follow up with neuro outpatient follow up cardio o/p continue medications as prescribed. monitor blood sugars daily and keep a diary of readings for follow up continue heart healthy diabetic diet Discharge Disposition: HOME SELF-CARE
== END 2022-07-02 19:55 | disposition home or self-care (01) ==
LOC: EC 08:22 → 6NMEDSUR 10:35
PROVIDERS: ADMIT Internal Medicine; ATTEND Internal Medicine
DX: R55 Syncope and collapse (principal); E11.65 Type 2 diabetes mellitus with hyperglycemia; G72.89 Other specified myopathies; R53.1 Weakness; E78.5 Hyperlipidemia, unspecified; E78.1 Pure hyperglyceridemia; I10 Essential (primary) hypertension; G89.29 Other chronic pain; M54.9 Dorsalgia, unspecified; Z79.899 Other long term (current) drug therapy
CPT/HCPCS: 96372 ×4; 96360; 99285; 36415; 95819; 93005; 93306; 80061; 80053; 80048; 84443; 82009; 83605; 83735; 84484; 85025 ×2; 85610; 85730; 81003; 83721; 80306; 83036; 71046; 70496; 70450; 70498; 70553; G0378 ×3; G0480; Q9967; J1644 ×3; A9585; 80320; 96361

== ENCOUNTER → 2022-08-29 | Outpatient (CLI) | payer OTHER ==
[2022-08-29 14:41] LABS: Chol/HDL Ratio 5.98 Ratio; LDL Cholesterol,Calculated 120.4 mg/dL (0.0-131.0)
== END | disposition home or self-care (01) ==
LOC: LABWHC1 10:29
PROVIDERS: ATTEND Internal Medicine Clinical Cardiac Electrophysiology
DX: E78.5 Hyperlipidemia, unspecified (principal)
CPT/HCPCS: 36415; 80061

== ENCOUNTER 2023-01-25 05:16 | Emergency (ER) | payer OTHER ==
[2023-01-25 05:34] VITALS: TEMP 97.7
[2023-01-25 06:01] LABS: ALT 26 U/L (4-49); AST 37 U/L (17-59); African American GFR (CKD) >90 (>60 ml/min/1.73 sqM); Albumin 4.4 g/dL (3.5-5.0); Alkaline Phosphatase 76 U/L (38-126); Anion Gap 12 mmol/L; Blood Urea Nitrogen 19 mg/dL (9-20); Calcium 9.3 mg/dL (8.4-10.2); Carbon Dioxide 20 mmol/L (22-30); Chloride 106 mmol/L (98-107); Glucose 126 mg/dL (74-99); Non-African American GFR(CKD) >90 (>60 ml/min/1.73 sqM); Sodium 138 mmol/L (137-145); Total Bilirubin 0.9 mg/dL (0.2-1.3); Total Protein 7.3 g/dL (6.3-8.2)
[2023-01-25 06:07] LABS: HCT 47.7 % (39.0-53.0); HGB 16.8 gm/dL (13.0-17.5); MCH 29.7 pg (25.0-35.0); MCHC 35.3 g/dL (31.0-37.0); MCV 84.1 fL (80.0-100.0); Mean Platelet Volume 8.1; Platelet Count 147 k/uL (150-450); RBC 5.67 m/uL (4.30-5.90); RDW 12.7 % (11.5-15.5); WBC 7.4 k/uL (3.8-10.6)
[2023-01-25 06:37] LABS: Potassium 4.1 mmol/L (3.5-5.1)
[2023-01-25 06:39] LABS: Eosinophils # (M) 0.22 k/uL (0-0.7); Lymphocytes # (M) 3.11 k/uL (1.0-4.8); Monocytes # (M) 0.44 k/uL (0-1.0); Neutrophils # (M) 3.63 k/uL (1.3-7.7); Neutrophils % (M) 49 %; Nucleated Red Blood Cells 0 /100 WBC (0-0); Total Cells Counted 100
[2023-01-25] MEDS ORDERED: MECLIZINE 12.5 MG TAB PO STA (07:02)
--- NOTE | 2023-01-25 07:11 | ED ---
General Adult HPI - General Chief complaint: Dizziness Stated complaint: vertigo Time Seen by Provider: 01/25/23 06:29 Source: patient, family Mode of arrival: wheelchair - History of Present Illness Initial comments: 62-year-old male presents to the emergency room for a chief complaint of dizziness. Patient states that he was sleeping and rolled onto his left side. He woke up to the room spinning. This spinning lasted 5-6 seconds. He was able to fall back asleep however the same symptoms happened again when he was laying on his left side this morning. Patient states turning his head makes the dizziness come back. At baseline he is not having room spinning but feels a little bit woozy. Denies any difficulty ambulating. Admits to nausea but denies vomiting. Denies any chest pain or shortness of breath. Denies headache.Patient has no other complaints at this time including shortness of breath, chest pain, abdominal pain, vomiting, headache, or visual changes. - Related Data Home Medications Medication Instructions Recorded Confirmed Ascorbic Acid [Vitamin C] 500 mg PO DAILY 04/22/22 06/30/22 Cyanocobalamin (Vitamin B-12) 1,000 mcg PO DAILY 04/22/22 06/30/22 [Vitamin B-12] Magnesium Oxide [Mag-Ox] 400 mg PO DAILY 04/22/22 06/30/22 Multivit-Min/FA/Lycopen/Lutein 1 tab PO DAILY 06/30/22 06/30/22 [Centrum Silver Men Tablet] Previous Rx's Medication Instructions Recorded Aspirin 81 mg PO DAILY #30 tab 07/02/22 Atorvastatin [Lipitor] 20 mg PO DAILY 30 Days #30 tab 07/02/22 Ezetimibe [Zetia] 10 mg PO DAILY #30 tab 07/02/22 Losartan [Cozaar] 50 mg PO DAILY #30 tab 07/02/22 metFORMIN HCL [Glucophage] 500 mg PO BID-W/MEALS #60 tab 07/02/22 Allergies Allergy/AdvReac Type Severity Reaction Status Date / Time BRAZIL NUTS Allergy Anaphylaxis Uncoded 01/25/23 05:34 Review of Systems ROS Statement: Those systems with pertinent positive or pertinent negative responses have been documented in the HPI. ROS Other: All systems not noted in ROS Statement are negative. Past Medical History Past Medical History: Diabetes Mellitus Additional Past Medical History / Comment(s): CHRONIC SINUS DISORDER. CHRONIC BACK PAIN. possible arrythmia, unsure History of Any Multi-Drug Resistant Organisms: None Reported Past Surgical History: No Surgical Hx Reported Additional Past Surgical History / Comment(s): COLONOSCOPY Past Anesthesia/Blood Transfusion Reactions: Motion Sickness Past Psychological History: No Psychological Hx Reported Smoking Status: Never smoker Past Alcohol Use History: None Reported Past Drug Use History: None Reported - Past Family History Mother Family Medical History: Cancer General Exam General appearance: alert, in no apparent distress Head exam: Present: atraumatic Eye exam: Present: normal appearance, PERRL, EOMI. Absent: scleral icterus, conjunctival injection ENT exam: Present: normal exam, mucous membranes moist. Absent: normal oropharynx Neck exam: Present: normal inspection, full ROM. Absent: tenderness Respiratory exam: Present: normal lung sounds bilaterally. Absent: respiratory distress, wheezes Cardiovascular Exam: Present: regular rate, normal rhythm, normal heart sounds GI/Abdominal exam: Present: soft, normal bowel sounds. Absent: distended, tenderness Extremities exam: Present: other (strength 5/5 in Bilat UE and LE) Neurological exam: Present: alert, oriented X3, CN II-XII intact, normal gait, other (positive jean-hallpike to the right) Expanded Patient oriented to: Present: person, place, time Speech: Present: fluid speech Cranial nerves: EOM's Intact: Normal, Tongue Deviation: Normal, Facial Sensation: Normal Cerebellar function: Finger to Nose: Normal, Heel to Vinson: Normal, Romberg: Normal Upper motor neuron: Pronator Drift: Normal Sensory exam: Upper Extremity Light Touch: Normal, Lower Extremity Light Touch: Normal, Lower Extremity Pin Prick: Normal Motor strength exam: RUE: 5, LUE: 5, RLE: 5, LLE: 5 Eye Response: (4) open spontaneously Motor Response: (6) obeys commands Verbal Response: (5) oriented Garfield Total: 15 Course Vital Signs 01/25/23 01/25/23 05:29 07:18 Temperature 97.7 F Pulse Rate 58 L 54 L Respiratory 20 18 Rate Blood Pressure 138/80 134/95 O2 Sat by Pulse 98 98 Oximetry EKG Findings - EKG Comments: EKG Findings:: sinus bradycardia, vent rate 56, MD int 167, QTc 396 Medical Decision Making - Medical Decision Making Vitals are stable. HPI and physical exam as documented. Symptoms of dizziness worsened with head movement and laying back. Jean-Hallpike positive to the right. Consistent with peripheral etiology. No focal neurologic deficits. Normal gait. CT brain was obtained which showed no acute process. Patient was given Antivert and monitored. Patient felt much better and is comfortable with discharge home. Strict return parameters discussed with patient. 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 Was pt. sent in by a medical professional or institution (, PA, BAND CUTTING MACHINE OPERATOR, urgent care, hospital, or skilled nursing...) When possible be specific @ -no Did you speak to anyone other than the patient for history (EMS, parent, family, police, friend...)? What history was obtained from this source @ -EMS family Did you review nursing and triage notes (agree or disagree)? Why? @ -[I reviewed and agree with nursing and triage notes] Were old charts reviewed (outside hosp., previous admission, EMS record, old EKG, old radiological studies, urgent care reports/EKG's, skilled nursing records)? Report findings @ -[No old charts were reviewed] Differential Diagnosis (chest pain, altered mental status, abdominal pain women, abdominal pain men, vaginal bleeding, weakness, fever, dyspnea, syncope, headache, dizziness, GI bleed, back pain, seizure, CVA, palpatations, mental health)? @ -Differential Dizziness: Benign paroxysmal positional Vertigo, Menieres disease, otitis media, acoustic neuroma, vertebrobasilar insufficiency, cerebellar stroke, encephalitis, h ypovolemic, arrhythmia, coronary artery syndrome, anemia, this is not meant to be an all-inclusive list EKG interpreted by me (3pts min.). @ -[As above] X-rays interpreted by me (1pt min.). @ -Chest CT interpreted by me (1pt min.). @ -Brain U/S interpreted by me (1pt. min.). @ -[None done] What testing was considered but not performed or refused? (CT, X-rays, U/S, labs)? Why? @ -[None] What meds were considered but not given or refused? Why? @ -Valium, didn't need Did you discuss the management of the patient with other professionals (professionals i.e. , PA, BAND CUTTING MACHINE OPERATOR, lab, RT, psych nurse, child welfare social worker, vp sales, teacher, chief contract officer, window caser)? Give summary @ -Dr Contreras Was smoking cessation discussed for >3mins.? @ -[No] Was critical care preformed (if so, how long)? @ -[No] Were there social determinants of health that impacted care today? How? (Homelessness, low income, unemployed, alcoholism, drug addiction, transporta tion, low edu. Level, literacy, decrease access to med. care, senior care, rehab)? @ -[No] Was there de-escalation of care discussed even if they declined (Discuss DNR or withdrawal of care, Hospice)? DNR status @ -[No] What co-morbidities impacted this encounter? (DM, HTN, Smoking, COPD, CAD, Cancer, CVA, ARF, Chemo, Hep., AIDS, mental health diagnosis, sleep apnea, morbid obesity)? @ -[None] Was patient admitted / discharged? Hospital course, mention meds given and route, prescriptions, significant lab abnormalities, going to OR and other pertinent info. @ -Vitals are stable. HPI and physical exam as documented. Symptoms of dizziness worsened with head movement and laying back. Jean-Hallpike positive to the right. Consistent with peripheral etiology. No focal neurologic deficits. Normal gait. CT brain was obtained which showed no acute process. Patient was given Antivert and monitored. Patient felt much better and is comfortable with discharge home. Strict return parameters discussed with patient. 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 Undiagnosed new problem with uncertain prognosis? @ -[No] Drug Therapy requiring intensive monitoring for toxicity (Heparin, Nitro, Insulin, Cardizem)? @ -[No] Were any procedures done? @ -Eda manuever Diagnosis/symptom? @ -dizziness Acute, or Chronic, or Acute on Chronic? @ -acute Uncomplicated (without systemic symptoms) or Complicated (systemic symptoms)? @ -complicated Side effects of treatment? @ -[No] Exacerbation, Progression, or Severe Exacerbation? @ -[No] Poses a threat to life or bodily function? How? (Chest pain, [place], [place], pneumonia, PE, COPD, DKA, ARF, appy, cholecystitis, CVA, Diverticulitis, Homicidal, Suicidal, threat to staff... and all critical care pts) @ -[No] - Lab Data Result diagrams: 01/25/23 05:35 01/25/23 05:35 Lab Results 01/25/23 01/25/23 Range/Units 05:35 05:35 WBC 7.4 (3.8-10.6) k/uL RBC 5.67 (4.30-5.90) m/uL Hgb 16.8 (13.0-17.5) gm/dL Hct 47.7 (39.0-53.0) % MCV 84.1 (80.0-100.0) fL MCH 29.7 (25.0-35.0) pg MCHC 35.3 (31.0-37.0) g/dL RDW 12.7 (11.5-15.5) % Plt Count 147 L (150-450) k/uL MPV 8.1 Neutrophils % (Manual) 49 % Lymphocytes % (Manual) 42 % Monocytes % (Manual) 6 % Eosinophils % (Manual) 3 % Neutrophils # (Manual) 3.63 (1.3-7.7) k/uL Lymphocytes # (Manual) 3.11 (1.0-4.8) k/uL Monocytes # (Manual) 0.44 (0-1.0) k/uL Eosinophils # (Manual) 0.22 (0-0.7) k/uL Nucleated RBCs 0 (0-0) /100 WBC Manual Slide Review Performed Sodium 138 (137-145) mmol/L Potassium 4.1 (3.5-5.1) mmol/L Chloride 106 (98-107) mmol/L Carbon Dioxide 20 L (22-30) mmol/L Anion Gap 12 mmol/L BUN 19 (9-20) mg/dL Creatinine 0.66 (0.66-1.25) mg/dL Est GFR (CKD-EPI)AfAm >90 (>60 ml/min/1.73 sqM) Est GFR (CKD-EPI)NonAf >90 (>60 ml/min/1.73 sqM) Glucose 126 H (74-99) mg/dL Calcium 9.3 (8.4-10.2) mg/dL Total Bilirubin 0.9 (0.2-1.3) mg/dL AST 37 (17-59) U/L ALT 26 (4-49) U/L Alkaline Phosphatase 76 (38-126) U/L Total Protein 7.3 (6.3-8.2) g/dL Albumin 4.4 (3.5-5.0) g/dL Disposition Clinical Impression: Dizziness Disposition: HOME SELF-CARE Condition: Good Instructions (If sedation given, give patient instructions): Dizziness (ED) Additional Instructions: Please take Antivert as needed for up to 3 days. Please follow-up with primary care on Saturday. Please return to the emergency room for any worsening symptoms. Do not return to work until your dizziness has completely resolved. Is patient prescribed a controlled substance at d/c from ED?: No Referrals: Keaton Domingo MD [Primary Care Provider] - 1-2 days Time of Disposition: 08:11
[2023-01-25 07:19] VITALS: RESP 18
--- NOTE | 2023-01-25 07:43 | CT ---
EXAMINATION TYPE: CT brain wo con CT DLP: 1260.4 mGycm, Automated exposure control for dose reduction was used. DATE OF EXAM: 01/25/2023 7:38 AM COMPARISON: CT brain 06/30/2022, CTA head and neck 06/28/2022, MRI brain 07/02/2022. CLINICAL INDICATION:Male, 62 years old with history of dizziness, Dizziness. TECHNIQUE: Brain: Multiple axial CT images of the brain were obtained without IV contrast. Coronal and sagittal reformats reviewed. FINDINGS: Brain: Extra-axial spaces: No abnormal extra-axial fluid collections. Ventricular system: Within normal limits Cerebral parenchyma: No acute intraparenchymal hemorrhage or mass effect. The high-white junction is well differentiated. Scattered hypoattenuating areas are seen within the white matter. Cerebellum: Unremarkable. Mass effect: No evidence of midline shift. Intracranial vasculature: unremarkable Soft tissues: Normal. Calvarium/osseous structures: No depressed skull fracture. Paranasal sinuses and mastoid air cells: The mastoid air cells are clear. Mild mucosal thickening of the right maxillary sinus. Visualized orbits: Orbital contents are intact. IMPRESSION: 1. No acute intracranial process. 2. Nonspecific white matter changes, likely secondary to chronic small vessel ischemic disease.
[2023-01-25 08:30] VITALS: BP 137/90; PULSE 66
== END 2023-01-25 08:33 | disposition home or self-care (01) ==
LOC: EC 05:16
DX: R42 Dizziness and giddiness (principal); E11.9 Type 2 diabetes mellitus without complications; Z91.018 Allergy to other foods
CPT/HCPCS: 36415; 70450; 80053; 85025; 93005; 99284

== ENCOUNTER 2023-09-17 07:43 | Emergency (ER) | payer OTHER ==
[2023-09-17 07:59] LABS: Glucose,Whole Blood 119 mg/dL (70-110)
[2023-09-17] MEDS ORDERED: ACETAMINOPHEN TAB 500 MG TAB PO STA (08:02)
[2023-09-17] MEDS ORDERED: SODIUM CHLORIDE 0.9% 1,000 ML IV STA (08:02)
[2023-09-17] MEDS ORDERED: IBUPROFEN 600 MG TAB PO STA (08:02)
--- NOTE | 2023-09-17 08:05 | ED ---
General Adult HPI - General Chief complaint: Weakness Stated complaint: Lighthead,Fever Time Seen by Provider: 09/17/23 07:56 Source: patient, RN notes reviewed Mode of arrival: ambulatory Limitations: no limitations - History of Present Illness Initial comments: Patient is a pleasant [age]-year-old male presenting to the emergency department with concerns with not feeling well. Onset was this morning. Patient feels lightheaded. Patient has lack of energy and feels fatigued. Patient has had some congestion and cough for a couple of days. No dyspnea. Patient questions if he could've fevers or not. Patient does feel chilled. No isolated area of weakness. - Related Data Home Medications Medication Instructions Recorded Confirmed Ascorbic Acid [Vitamin C] 500 mg PO DAILY 04/22/22 06/30/22 Cyanocobalamin (Vitamin B-12) 1,000 mcg PO DAILY 04/22/22 06/30/22 [Vitamin B-12] Magnesium Oxide [Mag-Ox] 400 mg PO DAILY 04/22/22 06/30/22 Mv-Min/Folic/K1/Lycopen/Lutein 1 tab PO DAILY 06/30/22 06/30/22 [Centrum Silver Men Tablet] Previous Rx's Medication Instructions Recorded Aspirin 81 mg PO DAILY #30 tab 07/02/22 Atorvastatin [Lipitor] 20 mg PO DAILY 30 Days #30 tab 07/02/22 Ezetimibe [Zetia] 10 mg PO DAILY #30 tab 07/02/22 Losartan [Cozaar] 50 mg PO DAILY #30 tab 07/02/22 metFORMIN HCL [Glucophage] 500 mg PO BID-W/MEALS #60 tab 07/02/22 Meclizine [Antivert] 25 mg PO TID PRN #15 tab 01/25/23 Allergies Allergy/AdvReac Type Severity Reaction Status Date / Time BRAZIL NUTS Allergy Anaphylaxis Uncoded 09/17/23 07:51 Review of Systems ROS Statement: Those systems with pertinent positive or pertinent negative responses have been documented in the HPI. ROS Other: All systems not noted in ROS Statement are negative. Constitutional: Reports: chills Eyes: Denies: eye pain ENT: Reports: congestion. Denies: ear pain, throat pain Respiratory: Reports: cough. Denies: dyspnea Cardiovascular: Denies: chest pain Endocrine: Reports: fatigue Gastrointestinal: Denies: abdominal pain Genitourinary: Denies: dysuria Musculoskeletal: Denies: back pain Skin: Denies: rash Past Medical History Past Medical History: Diabetes Mellitus Additional Past Medical History / Comment(s): CHRONIC SINUS DISORDER. CHRONIC BACK PAIN. possible arrythmia, unsure History of Any Multi-Drug Resistant Organisms: None Reported Past Surgical History: No Surgical Hx Reported Additional Past Surgical History / Comment(s): COLONOSCOPY Past Anesthesia/Blood Transfusion Reactions: Motion Sickness Past Psychological History: No Psychological Hx Reported Smoking Status: Never smoker Past Alcohol Use History: None Reported Past Drug Use History: None Reported - Past Family History Mother Family Medical History: Cancer General Exam Limitations: no limitations General appearance: alert, in no apparent distress Head exam: Present: normocephalic Eye exam: Present: normal appearance, PERRL, EOMI Neck exam: Present: normal inspection. Absent: tenderness, meningismus Respiratory exam: Present: normal lung sounds bilaterally Cardiovascular Exam: Present: regular rate, normal rhythm GI/Abdominal exam: Present: soft. Absent: tenderness Extremities exam: Present: normal inspection. Absent: pedal edema, calf tenderness Neurological exam: Present: alert Psychiatric exam: Present: normal affect, normal mood Skin exam: Present: normal color Course Vital Signs 09/17/23 07:44 Temperature 97.3 F L Pulse Rate 66 Respiratory 18 Rate Blood Pressure 146/78 O2 Sat by Pulse 97 Oximetry EKG Findings - EKG Results: EKG: interpreted by ERMD (Incomplete) block. Nonspecific T waves.), sinus rhythm, normal axis Medical Decision Making - Medical Decision Making Was pt. sent in by a medical professional or institution (, PA, CONTRACTS ADVISOR, urgent care, hospital, or longterm...) When possible be specific @ -No Did you speak to anyone other than the patient for history (EMS, parent, family, police, friend...)? What history was obtained from this source @ -Family is present to help provide history including onset Did you review nursing and triage notes (agree or disagree)? Why? @ -I reviewed and agree with nursing and triage notes Were old charts reviewed (outside hosp., previous admission, EMS record, old EKG, old radiological studies, urgent care reports/EKG's, longterm records)? Report findings @ -No old charts were reviewed Differential Diagnosis (chest pain, altered mental status, abdominal pain women, abdominal pain men, vaginal bleeding, weakness, fever, dyspnea, syncope, headache, dizziness, GI bleed, back pain, seizure, CVA, palpatations, mental health, musculoskeletal)? @ -Differential Fever: Pneumonia, viral URI, endocarditis, myocarditis, pericarditis, otitis, sinusitis, peritonsillar Abscess, retropharyngeal Abscess, epiglottitis, peritonitis, appendicitis, Flory cystitis, diverticulitis, hepatitis, colitis, UTI, PID, TOA, pyelonephritis, prostatitis, epididymitis, meningitis, encephalitis, pulmonary embolism, CVA, thyroid storm, pancreatitis, adrenal crisis, cavernous sinus thrombosis, this is not meant to be an all-inclusive list. EKG interpreted by me (3pts min.). @ -As above X-rays interpreted by me (1pt min.). @ -Chest x-ray shows no acute process CT interpreted by me (1pt min.). @ -None done U/S interpreted by me (1pt. min.). @ -None done What testing was considered but not performed or refused? (CT, X-rays, U/S, labs)? Why? @ -None What meds were considered but not given or refused? Why? @ -Consider Tamiflu however patient symptoms onset was a week ago. Did you discuss the management of the patient with other professionals (professionals i.e. , PA, CONTRACTS ADVISOR, lab, RT, psych nurse, high school social science teacher, ticker wirer, teacher, transport corps officer, rn case manager)? Give summary @ -No Was smoking cessation discussed for >3mins.? @ -No Was critical care preformed (if so, how long)? @ -No Were there social determinants of health that impacted care today? How? (Homelessness, low income, unemployed, alcoholism, drug addiction, transportation, low edu. Level, literacy, decrease access to med. care, [facility], rehab)? @ -No Was there de-escalation of care discussed even if they declined (Discuss DNR or withdrawal of care, Hospice)? DNR status @ -No What co-morbidities impacted this encounter? (DM, HTN, Smoking, COPD, CAD, Cancer, CVA, ARF, Chemo, Hep., AIDS, mental health diagnosis, sleep apnea, morbid obesity)? @ -None Was patient admitted / discharged? Hospital course, mention meds given and route, prescriptions, significant lab abnormalities, going to OR and other pertinent info. @ -Patient reevaluated and resting comfortably in bed. Patient is feeling somewhat better. Patient and family updated on results. Patient will be discharged with follow-up with primary care physician Undiagnosed new problem with uncertain prognosis? @ -No Drug Therapy requiring intensive monitoring for toxicity (Heparin, Nitro, Insulin, Cardizem)? @ -No Were any procedures done? @ -No Diagnosis/symptom? @ -Influenza Acute, or Chronic, or Acute on Chronic? @ -Acute Uncomplicated (without systemic symptoms) or Complicated (systemic symptoms)? @ -default Side effects of treatment? @ -No Exacerbation, Progression, or Severe Exacerbation? @ -No Poses a threat to life or bodily function? How? (Chest pain, [place], [place], pneumonia, PE, COPD, DKA, ARF, appy, cholecystitis, CVA, Diverticulitis, Homicidal, Suicidal, threat to staff... and all critical care pts) @ -No - Lab Data Result diagrams: 09/17/23 08:08 09/17/23 08:08 Lab Results 09/17/23 09/17/23 09/17/23 Range/Units 07:58 08:08 08:08 WBC 8.4 (3.8-10.6) k/uL RBC 5.65 (4.30-5.90) m/uL Hgb 16.8 (13.0-17.5) gm/dL Hct 48.6 (39.0-53.0) % MCV 86.0 (80.0-100.0) fL MCH 29.8 (25.0-35.0) pg MCHC 34.7 (31.0-37.0) g/dL RDW 12.5 (11.5-15.5) % Plt Count 165 (150-450) k/uL MPV 8.9 Neutrophils % Not Reportable Neutrophils % (Manual) 76 % Lymphocytes % Not Reportable Lymphocytes % (Manual) 16 % Monocytes % Not Reportable Monocytes % (Manual) 6 % Eosinophils % Not Reportable Eosinophils % (Manual) 2 % Basophils % Not Reportable Neutrophils # Not Reportable Neutrophils # (Manual) 6.38 (1.3-7.7) k/uL Lymphocytes # Not Reportable Lymphocytes # (Manual) 1.34 (1.0-4.8) k/uL Monocytes # Not Reportable Monocytes # (Manual) 0.50 (0-1.0) k/uL Eosinophils # Not Reportable Eosinophils # (Manual) 0.17 (0-0.7) k/uL Basophils # Not Reportable Nucleated RBCs 0 (0-0) /100 WBC Manual Slide Review Performed Sodium (137-145) mmol/L Potassium (3.5-5.1) mmol/L Chloride (98-107) mmol/L Carbon Dioxide (22-30) mmol/L Anion Gap mmol/L BUN (9-20) mg/dL Creatinine (0.66-1.25) mg/dL Est GFR (CKD-EPI)AfAm (>60 ml/min/1.73 sqM) Est GFR (CKD-EPI)NonAf (>60 ml/min/1.73 sqM) Glucose (74-99) mg/dL POC Glucose (mg/dL) 119 H (70-110) mg/dL POC Glu Program Project Analyst ID Brdoy Salas Plasma Lactic Acid Babatunde (0.7-2.0) mmol/L Calcium (8.4-10.2) mg/dL Magnesium (1.6-2.3) mg/dL Total Bilirubin (0.2-1.3) mg/dL AST (17-59) U/L ALT (4-49) U/L Alkaline Phosphatase (38-126) U/L Troponin I (0.000-0.034) ng/mL Total Protein (6.3-8.2) g/dL Albumin (3.5-5.0) g/dL TSH (0.465-4.680) mIU/L Urine Color Colorless Urine Appearance Clear (Clear) Urine pH 7.5 (5.0-8.0) Ur Specific Badger 1.006 (1.001-1.035) Urine Protein Negative (Negative) Urine Glucose (UA) Negative (Negative) Urine Ketones Negative (Negative) Urine Blood Negative (Negative) Urine Nitrite Negative (Negative) Urine Bilirubin Negative (Negative) Urine Urobilinogen <2.0 (<2.0) mg/dL Ur Leukocyte Esterase Negative (Negative) Influenza Type A (PCR) (Not Detectd) Influenza Type B (PCR) (Not Detectd) RSV (PCR) (Not Detectd) SARS-CoV-2 (PCR) (Not Detectd) 09/17/23 09/17/23 09/17/23 Range/Units 08:08 08:08 08:08 WBC (3.8-10.6) k/uL RBC (4.30-5.90) m/uL Hgb (13.0-17.5) gm/dL Hct (39.0-53.0) % MCV (80.0-100.0) fL MCH (25.0-35.0) pg MCHC (31.0-37.0) g/dL RDW (11.5-15.5) % Plt Count (150-450) k/uL MPV Neutrophils % Neutrophils % (Manual) % Lymphocytes % Lymphocytes % (Manual) % Monocytes % Monocytes % (Manual) % Eosinophils % Eosinophils % (Manual) % Basophils % Neutrophils # Neutrophils # (Manual) (1.3-7.7) k/uL Lymphocytes # Lymphocytes # (Manual) (1.0-4.8) k/uL Monocytes # Monocytes # (Manual) (0-1.0) k/uL Eosinophils # Eosinophils # (Manual) (0-0.7) k/uL Basophils # Nucleated RBCs (0-0) /100 WBC Manual Slide Review Sodium 140 (137-145) mmol/L Potassium 4.0 (3.5-5.1) mmol/L Chloride 106 (98-107) mmol/L Carbon Dioxide 20 L (22-30) mmol/L Anion Gap 14 mmol/L BUN 7 L (9-20) mg/dL Creatinine 0.70 (0.66-1.25) mg/dL Est GFR (CKD-EPI)AfAm >90 (>60 ml/min/1.73 sqM) Est GFR (CKD-EPI)NonAf >90 (>60 ml/min/1.73 sqM) Glucose 119 H (74-99) mg/dL POC Glucose (mg/dL) (70-110) mg/dL POC Glu Program Project Analyst ID Plasma Lactic Acid Babatunde 1.5 (0.7-2.0) mmol/L Calcium 9.4 (8.4-10.2) mg/dL Magnesium 2.1 (1.6-2.3) mg/dL Total Bilirubin 1.2 (0.2-1.3) mg/dL AST 33 (17-59) U/L ALT 25 (4-49) U/L Alkaline Phosphatase 97 (38-126) U/L Troponin I (0.000-0.034) ng/mL Total Protein 7.3 (6.3-8.2) g/dL Albumin 4.4 (3.5-5.0) g/dL TSH 1.850 (0.465-4.680) mIU/L Urine Color Urine Appearance (Clear) Urine pH (5.0-8.0) Ur Specific Badger (1.001-1.035) Urine Protein (Negative) Urine Glucose (UA) (Negative) Urine Ketones (Negative) Urine Blood (Negative) Urine Nitrite (Negative) Urine Bilirubin (Negative) Urine Urobilinogen (<2.0) mg/dL Ur Leukocyte Esterase (Negative) Influenza Type A (PCR) Detected A (Not Detectd) Influenza Type B (PCR) Not Detected (Not Detectd) RSV (PCR) Not Detected (Not Detectd) SARS-CoV-2 (PCR) Not Detected (Not Detectd) 09/17/23 Range/Units 08:29 WBC (3.8-10.6) k/uL RBC (4.30-5.90) m/uL Hgb (13.0-17.5) gm/dL Hct (39.0-53.0) % MCV (80.0-100.0) fL MCH (25.0-35.0) pg MCHC (31.0-37.0) g/dL RDW (11.5-15.5) % Plt Count (150-450) k/uL MPV Neutrophils % Neutrophils % (Manual) % Lymphocytes % Lymphocytes % (Manual) % Monocytes % Monocytes % (Manual) % Eosinophils % Eosinophils % (Manual) % Basophils % Neutrophils # Neutrophils # (Manual) (1.3-7.7) k/uL Lymphocytes # Lymphocytes # (Manual) (1.0-4.8) k/uL Monocytes # Monocytes # (Manual) (0-1.0) k/uL Eosinophils # Eosinophils # (Manual) (0-0.7) k/uL Basophils # Nucleated RBCs (0-0) /100 WBC Manual Slide Review Sodium (137-145) mmol/L Potassium (3.5-5.1) mmol/L Chloride (98-107) mmol/L Carbon Dioxide (22-30) mmol/L Anion Gap mmol/L BUN (9-20) mg/dL Creatinine (0.66-1.25) mg/dL Est GFR (CKD-EPI)AfAm (>60 ml/min/1.73 sqM) Est GFR (CKD-EPI)NonAf (>60 ml/min/1.73 sqM) Glucose (74-99) mg/dL POC Glucose (mg/dL) (70-110) mg/dL POC Glu Program Project Analyst ID Plasma Lactic Acid Babatunde (0.7-2.0) mmol/L Calcium (8.4-10.2) mg/dL Magnesium (1.6-2.3) mg/dL Total Bilirubin (0.2-1.3) mg/dL AST (17-59) U/L ALT (4-49) U/L Alkaline Phosphatase (38-126) U/L Troponin I <0.012 (0.000-0.034) ng/mL Total Protein (6.3-8.2) g/dL Albumin (3.5-5.0) g/dL TSH (0.465-4.680) mIU/L Urine Color Urine Appearance (Clear) Urine pH (5.0-8.0) Ur Specific Badger (1.001-1.035) Urine Protein (Negative) Urine Glucose (UA) (Negative) Urine Ketones (Negative) Urine Blood (Negative) Urine Nitrite (Negative) Urine Bilirubin (Negative) Urine Urobilinogen (<2.0) mg/dL Ur Leukocyte Esterase (Negative) Influenza Type A (PCR) (Not Detectd) Influenza Type B (PCR) (Not Detectd) RSV (PCR) (Not Detectd) SARS-CoV-2 (PCR) (Not Detectd) Disposition Clinical Impression: Influenza Disposition: HOME SELF-CARE Condition: Stable Instructions (If sedation given, give patient instructions): Influenza (ED) Additional Instructions: Please do follow-up with primary care physician in the next couple days for recheck. [id number] Tylenol or Motrin as needed. Return for difficulty breathing, not tolerating fluids, worsening symptoms or other concerns. Is patient prescribed a controlled substance at d/c from ED?: No Referrals: Marycruz Gordon NPC [Primary Care Provider] - 1-2 days Time of Disposition: 10:09
[2023-09-17 08:36] VITALS: RESP 18
[2023-09-17 08:47] LABS: ALT 25 U/L (4-49); African American GFR (CKD) >90 (>60 ml/min/1.73 sqM); Albumin 4.4 g/dL (3.5-5.0); Anion Gap 14 mmol/L; Blood Urea Nitrogen 7 mg/dL (9-20); Calcium 9.4 mg/dL (8.4-10.2); Carbon Dioxide 20 mmol/L (22-30); Chloride 106 mmol/L (98-107); Glucose 119 mg/dL (74-99); Magnesium 2.1 mg/dL (1.6-2.3); Non-African American GFR(CKD) >90 (>60 ml/min/1.73 sqM); Sodium 140 mmol/L (137-145); Total Bilirubin 1.2 mg/dL (0.2-1.3); Total Protein 7.3 g/dL (6.3-8.2)
--- NOTE | 2023-09-17 08:49 | XR ---
EXAMINATION TYPE: XR chest 2V DATE OF EXAM: 09/17/2023 8:40 AM CLINICAL INDICATION:Male, 63 years old with history of Weakness; COMPARISON: Chest radiographs from 06/30/2022. TECHNIQUE: XR chest 2V Frontal and lateral views of the chest. FINDINGS: Lungs/Pleura: There is no evidence of pleural effusion, focal consolidation, or pneumothorax. Pulmonary vascularity: Unremarkable. Heart/mediastinum: Cardiomediastinal silhouette is unremarkable. Musculoskeletal: No acute osseous pathology. IMPRESSION: No acute cardiopulmonary disease/process.
[2023-09-17 09:06] LABS: AST 33 U/L (17-59); Alkaline Phosphatase 97 U/L (38-126)
[2023-09-17 09:19] LABS: HCT 48.6 % (39.0-53.0); HGB 16.8 gm/dL (13.0-17.5); MCH 29.8 pg (25.0-35.0); MCHC 34.7 g/dL (31.0-37.0); Mean Platelet Volume 8.9; Platelet Count 165 k/uL (150-450); RBC 5.65 m/uL (4.30-5.90); RDW 12.5 % (11.5-15.5); WBC 8.4 k/uL (3.8-10.6)
[2023-09-17 09:36] LABS: Appearance,Urine Clear (Clear); Bilirubin,Urine Negative (Negative); Blood,Urine Negative (Negative); Color,Urine Colorless; Glucose,Urine (UA) Negative (Negative); Ketones,Urine Negative (Negative); Leukocyte Esterase,Urine Negative (Negative); Nitrite,Urine Negative (Negative); PH, Urine 7.5 (5.0-8.0); Protein,Urine Negative (Negative); Specific Gravity,Urine 1.006 (1.001-1.035); Urobilinogen,Urine <2.0 mg/dL (<2.0)
[2023-09-17 09:42] LABS: Eosinophils # (M) 0.17 k/uL (0-0.7); Lymphocytes # (M) 1.34 k/uL (1.0-4.8); Neutrophils # (M) 6.38 k/uL (1.3-7.7); Neutrophils % (M) 76 %; Nucleated Red Blood Cells 0 /100 WBC (0-0); Total Cells Counted 100
[2023-09-17 10:38] VITALS: BP 132/94; PULSE 72; TEMP 98
== END 2023-09-17 10:21 | disposition home or self-care (01) ==
LOC: EC 07:43
DX: J11.1 Influenza due to unidentified influenza virus with other respiratory manifestations (principal); E11.9 Type 2 diabetes mellitus without complications; Z88.8 Allergy status to other drugs, medicaments and biological substances; Z20.822 Contact with and (suspected) exposure to COVID-19
CPT/HCPCS: 36415; 71046; 80053; 81003; 83605; 83735; 84443; 84484; 85025; 87636; 93005; 96360; 99285